=== PATIENT | female | born 1940 | race Caucasian/White ===

== ENCOUNTER 2022-06-07 13:40 | Outpatient (CLI) | payer OTHER, SELFPAY ==
--- NOTE | 2022-06-07 14:00 | MR_ITS ---
[address] [address] Phone:?[phone] Fax:?[phone] Referring Physician Information: Aneudy Moreno [address] [facility] [address] Phone:?[phone] Fax:?[phone] Patient:?Maty Martini D.O.B:?1940 Sex:?Female Phone:?[phone] [facility] MRN:?[id number] Exam Date:?06/07/2022 ? EXAM: MRI of the RIGHT KNEE, without contrast CLINICAL HISTORY: Right knee pain. Evaluate for internal derangement. COMPARISONS: None available. TECHNICAL: MR sequences of the right knee: sagittals: PD, PDFS coronals: PD, T2FS axials: PD, PDFS CONTRAST: None SEDATION: None FINDINGS: Bones: Approximately 1.0 x 1.0 cm subchondral trabecular microfracture of the peripheral weightbearing portion of the medial femoral condyle with adjacent bone marrow edema. Patellofemoral joint: Cartilage: Diffuse full-thickness chondromalacia over the median patellar ridge and medial patellar facet with associated degenerative subchondral cystic changes and extensive near full-thickness chondromalacia over the medial portion of the trochlea. Retinacula: The medial and lateral retinacula are intact. Fat pads: The infrapatellar, quadriceps, and prefemoral fat pads are unremarkable. Knee joint: Effusion: Trace right knee joint effusion. Popliteal cyst: Small popliteal cyst. Intra-articular bodies: None. Medial compartment: Medial meniscus: Full-thickness radial tear through the posterior root of the medial meniscus best seen on coronal series 8 image 21, sagittal series 6 image 18, and axial series 4 image 20. Approximately 3 mm of medial meniscal extrusion best seen on coronal series 7 image 17. Cartilage: Diffuse grade II chondromalacia over most of the weightbearing portion of the medial femoral condyle. Lateral compartment: Lateral meniscus: Degenerative free edge fraying of the body of the lateral meniscus best seen on coronal series 7 image 18. No unstable lateral meniscal tear is seen. Cartilage: Intact. Ligaments: Anterior cruciate ligament: Intact. Posterior cruciate ligament: Intact. Medial collateral ligament: Intact. Posterior oblique ligament: Intact. Fibular collateral ligament: Intact. Posterolateral corner: The distal biceps femoris tendon, iliotibial band, popliteus tendon, popliteus muscle, popliteofibular ligament, and arcuate ligament are intact. Posteromedial corner: The semimembranosus and pes anserine tendons are intact. Extensor mechanism: Patellar tendon: Intact. Quadriceps tendon: Intact, without tendinopathy. IMPRESSION: 1. Full-thickness radial tear through the posterior root of the medial meniscus. Approximately 3 mm of medial meniscal extrusion. 2. Approximately 1.0 x 1.0 cm subchondral trabecular microfracture/insufficiency fracture of the peripheral weightbearing portion of the medial femoral condyle with adjacent bone marrow edema. 3. Diffuse full-thickness chondromalacia over the median patellar ridge and medial patellar facet with associated degenerative subchondral cystic changes and extensive near full-thickness chondromalacia over the medial portion of the trochlea. 4. Diffuse grade II chondromalacia over most of the weightbearing portion of the medial femoral condyle. 5. Degenerative free edge fraying of the body of the lateral meniscus. No unstable lateral meniscal tear. 6. Trace right knee joint effusion. Small popliteal cyst. 7. No ligamentous injury of the right knee. RCB Electronically signed on 06/07/2022 3:31:00 PM by Norm Contreras M.D.
== END 2022-06-07 13:41 | disposition home or self-care (01) ==
LOC: MRI 13:41
PROVIDERS: PCP Physician Assistant; Visit Provider Physician Assistant
DX: M25.561 Pain in right knee (principal); M23.221 Derangement of posterior horn of medial meniscus due to old tear or injury, right knee; M94.261 Chondromalacia, right knee; M25.461 Effusion, right knee
CPT/HCPCS: 73721

== ENCOUNTER 2022-09-11 08:49 | Outpatient (RCR) | payer OTHER, SELFPAY | END 2022-09-11 12:43 | disposition home or self-care (01) | PROVIDERS: PCP Physician Assistant; Visit Provider Orthopaedic Surgery | DX: M17.11 Unilateral primary osteoarthritis, right knee (principal); Z51.89 Encounter for other specified aftercare | CPT/HCPCS: 97110; 97161; 97535 ==

== ENCOUNTER 2022-09-24 07:11 | Day surgery (SDC) | payer OTHER, SELFPAY ==
--- NOTE | 2022-09-11 12:06 | PT.OPEX ---
PT [place] Outpatient Eval PT [facility] Outpatient Eval Start: 09/11/22 07:23 Freq: Status: Active Protocol: Document 09/11/22 09:42 KLV (Rec: 09/11/22 09:49 KLV [id number]) E-signed By Lorene Presley, PT Physical Therapy Outpatient Evaluation Insurance Information Recert Due Date 12/06/22 Insurance Name Health [employer],Medicare B, Other; See Comments Insurance Information/Comments [facility] Medical Diagnosis Osteoarthritis of right knee Pre-operative right total knee replacement Right knee pain Treating Diagnosis Right knee pain, limited knee ROM, impaired gait, gross muscle weakness Referring MD Llamas Subjective Subjective Maty reports to PT for pre- operative exam with expected R TKA DOS 09/24/[address] Llamas at [facility]. She plans to follow up with PT at [facility]. She has had 2 known falls where she has tripped on stairs and landed on her right knee causing gradual wear and tear of that knee. She has not had to use AD at this time but currently limited with ambulation, stair negotiation, squatting, bending and kneeling. She lives with her in split-level home with 1 step to enter and 8 steps to get up and down once inside home. Railings are on both sides with all stairs. and granddaughter (CLEARANCE REP ) plan to assist her at home and do all chores/laundry. She is looking into possibly getting sock aide, leg street light repairer, bath bench, toilet riser prior to surgery. PMH: arthritis Pain Comments 5/10 worst Date of Last Physician Visit 09/10/22 Date of Surgery (If applicable) 09/24/22 Current Work Status Retired Precautions Therapy Limitations/Systems Review Not Limited Objective Other/Pertinent Objective Knee ROM: -L 0-109 -R 0-107 with end range pain Gross TTP medial and lateral joint line Patellar compression + Gait: no AD, limited stance time R LE, reverse trendelenburg R LE UE ROM: WFL B however painful with OH reaching L UE, 4/5 all motions SLR: able to perform x10 without extension lag Assessment Assessment/Impression Pt presents with signs and symptoms consistent with primary R knee OA. DOS: scheduled for 09/24/22. Anticipated deficits/ impairments in pain, ROM, and strength. Pt would benefit from skilled PT interventions to facilitate preparation for upcoming surgery and optimization of return to PLOF following surgery. She demonstrates independence with HEP and use of FWW as well as appropriate gait pattern on stairs. She is appropriate to proceed with surgery at this time and has a safe d/c plan. All questions answered today. Primary Functional Limitations Walking, stair negotiation, squatting, bending, kneeling Plan of Care Rehabilitation Potential Good Physical Therapy Goals By end of session today, patient will... Demonstrate appropriate gait pattern with FWW to utilize post surgery for optimal safety when ambulating Demonstrate ability to negotiate stairs using appropriate stair pattern post surgery for optimal safety when at home and in community Verbalize understanding of most appropriate home set up including needed equipment for optimal safety and recovery post surgery Be independent in HEP program to show ability to perform appropriate exercises post surgery Treatment Plan/Direct Interventions Gait Training,Ice/Cold/ Vasopneumatic,Joint Mobilization,Manual Therapy, Neuromuscular Re-ed,Self-Care/ Home Management,Therapeutic Activities,Therapeutic Exercises Frequency/Duration Evaluation only: patient to attend post-operative outpatient therapy at [facility] in [place] Patient Will Be Discharged From Therapy Completion of LTG(s), Independent w/HEP, Independently Progressing Evaluation Billing Untimed Code Treatment Minutes 15 Complexity Low Certification Information Initial Certification Date 09/11/22 Ending Certification Date 12/06/22 Provider Signature Shows Agreement With POC & Medical Necessity Physician Signature & Date Requested Please Sign/Date Here Physician Comment/Change : Physician NPI Number #
[2022-09-24] VITALS (22 sets, daily range): BP systolic 113–177; BP diastolic 60–93; PULSE 43–97; RESP 14–20; TEMP 36.3–36.7; O2SAT 86–100; BMI 42.7
[2022-09-24] MEDS: OXYCODONE (CR) 10 MG TAB.ER.12H PO (07:17)
[2022-09-24] MEDS: CELECOXIB 200 MG CAPSULE PO ×2 (07:17→21:40)
[2022-09-24] MEDS: ACETAMINOPHEN 500 MG TABLET 1000 MG PO ×3 (08:21→21:40)
--- NOTE | 2022-09-24 08:47 | SUR.PREOP ---
TIME?OUT:?0850 PT/RN/MDA?VERIFICATION?OF?SURGICAL?SITE right leg,?PROCEDURE nerve block,?AND?CONSENT OBTAINED?PRIOR?TO?INVASIVE?PROCEDURE.
[2022-09-24] MEDS: fentaNYL 100 MCG/2 ML inj IVP (08:55)
[2022-09-24] MEDS: MIDAZOLAM HCL 1 MG/ML inj IVP (08:55)
--- NOTE | 2022-09-24 09:10 | P.NB_ITS ---
Nerve Block Nerve Block Time Seen by Provider: 09:10 Date Seen: 09/24/22 Type of block requested by surgeon for post-operative analgesia: adductor canal Side: right Time out performed: Yes Verification of patient name: Yes Verification of date of : Yes Site marking: site marked Name of person performing procedure: Raphael Allison Continuous monitoring Was continuous monitoring of O2 sat, B/P, diagnostic cardiac sonographer, recorded every 15 minutes?: Yes Procedure Checklist: sterile prep, needles and gloves Ultrasound guided. Images saved: Yes Medications given in 5ml increments after negative aspiration: Ropivicaine %: 0.5 mL: 27 Decadron (mg): 10 Precedex (mcg): 20 Patient tolerated procedure well: Yes Block Charges Block Charge (with Pro Fee): Femoral Nerve Use of Ultrasound Machine for Block: Yes- US Guidance/pain block
--- NOTE | 2022-09-24 09:12 | W.PM.NB ---
Nerve Block Nerve Block Time Seen by Provider: 09:12 Date Seen: 09/24/22 Type of block requested by surgeon for post-operative analgesia: geniculars Side: right Time out performed: Yes Verification of patient name: Yes Verification of date of : Yes Site marking: site marked Name of person performing procedure: Raphael Allison Continuous monitoring Was continuous monitoring of O2 sat, B/P, youth nutritional monitor, recorded every 15 minutes?: Yes Procedure Checklist: sterile prep, needles and gloves Ultrasound guided. Images saved: Yes Medications given in 5ml increments after negative aspiration: Ropivicaine %: 0.5 mL: 7 Patient tolerated procedure well: Yes Block Charges Block Charge (with Pro Fee): Genicular Nerve Block
[2022-09-24] MEDS: SODIUM CHLORIDE 0.9 % (FLUSH) 10 ML SYRINGE IVF (09:15)
[2022-09-24] MEDS: LACTATED RINGERS 1000 ML 1,000 ML 100 ML IV ×2 (09:15→11:30)
[2022-09-24] MEDS: CEFAZOLIN 2 GM INJ IVP (10:22)
[2022-09-24] MEDS: TRANEXAMIC ACID 100 MG/ML INJ 1000 MG IV (10:25)
--- NOTE | 2022-09-24 11:35 | CRLHL7_ITS ---
For Patients: As a result of the Cures Act, medical imaging exams and procedure reports are released immediately into your electronic medical record. You may view this report before your referring provider. If you have questions, please contact your health care provider. Indication: POST OP RIGHT TKA Technique: Two views right knee Findings/Impression: Hardware from a right total knee arthroplasty is in satisfactory position. Bone alignment is normal. No sign of acute fracture. Postop changes are within normal limits. Dictated by Eusebio Mcguire MD @ 09/25/2022 1:04:30 PM (Electronically Signed)
--- NOTE | 2022-09-24 11:38 | PM.ORPRC ---
Procedure Note Date of procedure: 09/24/22 Procedure: PREOPERATIVE DIAGNOSIS: Left knee osteoarthritis POSTOPERATIVE DIAGNOSIS: Left knee osteoarthritis NAME OF OPERATION: Left total knee arthroplasty SURGEON: Lorenzo Llamas MD SUPERVISOR HEAT TREATING: KASSIDY Bravo ANESTHESIA: Spinal ESTIMATED BLOOD LOSS: 0 mL COMPLICATIONS: None SPECIMENS: None DRAINS: None PREOPERATIVE ANTIBIOTICS: Ancef 2 grams IMPLANTS: 1. J&J Attune # 5 posterior stabilized femur 2. # 5 fixed-bearing tibia 3. # 5 posterior stabilized, 5 mm fixed-bearing polyethylene 4. 35 patella INDICATIONS: The patient is a 81-year-old with a longstanding history of severe, unrelenting left knee pain secondary to end-stage (grade IV) left knee osteoarthritis. Despite appropriate nonoperative management, including activity modification, anti-inflammatories, [id number] pain medication, bracing, physical therapy, and injections they continue to have pain and disability. Operative intervention was offered. The risks, benefits and expected outcomes were discussed in detail. These included but were not limited to: Infection, bleeding, injury to blood vessel or nerve, venous thromboembolism. All questions were answered to their satisfaction. Use of an dental assistant instructor was necessary throughout the case for patient positioning and safety, soft tissue retraction, and closure. PROCEDURE: Spinal anesthesia was administered. The patient was placed supine on the operating table. The dental assistant instructor made sure the patient was positioned appropriately. The lower extremity was prepped and draped in the usual sterile fashion. The limb was exsanguinated with the Rafa bandage. The pneumatic tourniquet was inflated to 300 mmHg. A standard anterior incision was made with the knee in flexion. Subcutaneous dissection was sharply taken through fascial layer #1. Full-thickness medial and lateral flaps were elevated. The dental assistant instructor retracted the soft tissues and protected them throughout the case. A standard medial parapatellar approach was made. The patella was everted. The infrapatellar fat pad was preserved. The menisci and cruciate ligaments were sharply d?brided. Marginal osteophytes were d?brided with the rongeur. The drill was used to penetrate the femoral canal. The canal was aspirated and irrigated with pulse lavage. The intramedullary femoral guide was placed for a 5-degree valgus cut, removing 10 mm off the distal femur. The saw was used to make the cut. Whitesides line and the trans epicondylar axis were marked. The femoral sizing guide was pinned onto the distal femur. Three degrees of external rotation nicely parallels the transepicondylar axis. Pins were placed for posterior referencing. The four-in-one cutting guide was pinned onto the distal femur. The anterior, posterior, and chamfer cuts were made. The dental assistant instructor protected the collateral ligaments. The box cutting guide was pinned. The box cuts were made. The boxed trial was placed and was an excellent fit. Drill holes for the lugs were made. Attention was then turned to the proximal tibia. The extramedullary tibial guide was placed for a neutral varus/valgus cut with 5 degrees of posterior slope, removing 2 mm based off the medial tibial surface. The dental assistant instructor protected the collateral ligaments and the neurovascular bundle. The saw was used to make the cut. Trial components were placed. The knee was nicely balanced in both flexion and extension. The trial components were removed. The tray was placed in appropriate rotation, parallel to our tibial cutting pins. It was pinned by the dental assistant instructor and the drill and the punch were used. The tray was removed. The punch was used again. We placed a bone plug in the femoral canal. Attention was then turned to the patella. [facility] patellar thickness was 20 mm. The lobster claw resection guide was used with the 7.5 mm dariana. The saw was used to make the cut. Drill holes were made by the dental assistant instructor. The trial was placed and was an excellent fit. Cancellous surfaces were irrigated with pulse lavage and thoroughly dried by the dental assistant instructor. We cemented the tibial component, then the femoral component. We impacted the 5 mm polyethylene onto the tibial tray. The knee was brought into full extension. We then cemented the patellar component. Excessive cement was removed. The cement was allowed to harden. The knee was taken through a range of motion and was found to be nicely balanced in both flexion and extension. The patella tracks centrally. The dental assistant instructor did a three minute dilute Betadine solution soak. The dental assistant instructor irrigated the wound with 3 liters of normal saline via pulse lavage. The dental assistant instructor reapproximated the extensor mechanism with #1 Vicryl in an interrupted [id number] fashion. The dental assistant instructor then ran the extensor mechanism with a #1 PDO Stratafix. The dental assistant instructor closed the subcutaneous tissues with a 3-0 Stratafix and the skin with a running 3-0 Stratafix in a subcuticular fashion. Glue was used to seal the skin. The dental assistant instructor placed a dry dressing, TOBY stocking, and Polar Care. Sponge and needle counts were correct x2. The patient tolerated the procedure well. There were no apparent complications. They were carefully transferred to the hospital bed and taken to the postanesthesia care unit in satisfactory condition. PLAN: The patient will be mobilized with physical therapy. Aspirin will be used for DVT prophylaxis. They will be discharged to home once medically appropriate.
--- NOTE | 2022-09-24 12:08 | W.ANESCHARGE ---
Anesthesia Charges Start Date/Time Anesthesia Start Date: 09/24/22 Anesthesia Start Time: 10:15 Stop Date/Time Anesthesia Stop Date: 09/24/22 Anesthesia Stop Time: 12:08 Summary Emergency: No Extremes of Age: Over 70-CPT 17[address]
--- NOTE | 2022-09-24 17:02 | PM.IMCN1 ---
Date of Consult Patient: Cheryl Patient Consult date: 09/24/22 Requesting Physician: Orthopedics Primary Care Provider: Genie Cruz PA-C Consult Narrative Reason for consult: DM2 Narrative: Maty Martini is a 81 year old female who underwent an elective right total knee arthroplasty today by Dr. Llamas for osteoarthritis. Postoperatively she is doing well. She had the surgery this morning and just now in the late afternoon she is starting to feel some pain in her knee, but has not yet taken any oral pain medication for it. Her , [place], is with her today. Maty told me about problems with hair loss when she gets stressed, diarrhea from certain foods such as citrus and corn as well as stress or anxiety. She has a history of rectocele which, although it was repaired, she still is sometimes incontinent of stool. She has also occasionally incontinent of urine, it sounds like stress incontinence. She also complains of insomnia for which she recently started an rcbj-qfj-qljedeh diphenhydramine. Review of Systems Status of ROS: Reports: 10 or more systems reviewed and unremarkable except as noted in History and below PFSH PFSH Medical History (Updated 09/24/22 @ 17:29 by Kortney Urbina MD) Bilateral lower extremity edema Colon polyp GERD (gastroesophageal reflux disease) Incontinence of feces Intussusception of rectum Obesity, Class III, BMI 40-49.9 (morbid obesity) Sinus bradycardia Sleep apnea Type 2 diabetes mellitus without complications Urinary incontinence Varicose veins of both lower extremities Surgical History (Updated 09/24/22 @ 17:18 by Kortney Urbina MD) H/O breast biopsy H/O cataract removal with insertion of prosthetic lens H/O hernia repair (10/2020) H/O: hysterectomy (~1991) History of appendectomy (1961) History of rectal surgery (12/2017) History of tonsillectomy (1967) Hx of colonoscopy Hx of esophagogastroduodenoscopy S/P total knee arthroplasty Family History (Updated 09/24/22 @ 17:19 by Kortney Urbina MD) Mother Colon cancer Pacemaker Diabetes High blood pressure Father Diabetes Stroke Myocardial infarction Sister High blood pressure Sleep apnea Aunt Breast cancer Aunt Breast cancer Social History (Updated 09/24/22 @ 17:21 by Kortney Urbina MD) Narrative: . Lives with . Lifelong nonsmoker. Denies alcohol use and recreational drug use. Full code. Smoking Status: Never smoker Do you use any of these nicotine containing products: None How often do you have a drink containing alcohol: monthly or less Alcohol type: wine How many standard drinks containing alcohol do you have on a typical day: 1 or 2 How often do you have six or more drinks on one occasion: Never AUDIT-C Alcohol total score: 1 Non-prescribed substance use: denies use Caffeine: No service: No Meds Home Medications and Allergies Home Medications Medication Instructions Recorded Confirmed Type acetaminophen 500 mg capsule 500 mg PO Q6H PRN 05/29/22 09/24/22 History antiarthritic combination no.2 900 900 mg PO DAILY 05/29/22 09/24/22 History mg tablet (glucosamine-chondroitin) cholecalciferol (vitamin D3) 10 10 mcg PO QDAY 05/29/22 09/24/22 History mcg (400 unit) capsule lactobacillus combination no.9 4 4,000 mmu cells PO QDAY 05/29/22 09/24/22 History billion cell capsule (Adult 50 Plus Probiotic) omega-3 fatty acids-fish oil 360 1 cap PO QDAY 05/29/22 09/24/22 History mg-1,200 mg capsule (Fish Oil) polyethylene glycol 3350 17 4 g PO ONCE PRN 05/29/22 09/24/22 History gram/dose oral powder metformin 500 mg tablet,extended 1,000 mg PO DAILY 09/23/22 09/24/22 History release 24 hr multivitamin 1 tab PO DAILY 09/23/22 09/24/22 History omeprazole 40 mg capsule,delayed 40 mg PO DAILY 09/23/22 09/24/22 History release diphenhydramine HCl 25 mg capsule 50 mg PO QHS 09/24/22 09/24/22 History (Benadryl) Allergies Allergy/AdvReac Type Severity Reaction Status Date / Time No Known Drug Allergies Allergy Verified 07/10/22 14:39 Exam Narrative: Exam Narrative: General: No acute distress. Awake alert oriented x3. HEENT: Normocephalic atraumatic, pupils equally round and reactive to light and accommodation. Oropharynx clear. Mucous membranes are moist. No cervical lymphadenopathy, thyromegaly or carotid bruits. No JVD. Cardiovascular: Regular rate and rhythm. No murmurs, gallops, or rubs. Chest: No increased work of breathing. Clear to auscultation bilaterally. No crackles or wheezes. Abdomen: Obese. Bowel sounds present. Soft, nondistended, nontender. No hepatosplenomegaly or masses. Extremities: Right knee bandage is clean, dry, and intact. No cyanosis or clubbing. Skin: No jaundice, no pallor, no rashes. Const: Vital Signs, click to edit/add: Vital Signs - 24 hr 09/24/22 07:38 09/24/22 08:45 09/24/22 09:05 Temperature 98.1 F Pulse Rate 55 L 50 L 50 L Respiratory Rate 20 18 14 Blood Pressure 143/93 H 177/84 H 147/79 H Pulse Oximetry 94 99 100 Oxygen Delivery Me thod Room Air Nasal Cannula Nasal Cannula Oxygen Flow Rate 2 2 09/24/22 12:03 09/24/22 12:10 09/24/22 12:15 Temperature 97.4 F L Pulse Rate 64 53 L 53 L Respiratory Rate 16 14 14 Blood Pressure 116/60 113/73 118/68 Pulse Oximetry 94 91 93 Oxygen Delivery Me thod Room Air Oxygen Flow Rate 09/24/22 12:20 09/24/22 12:25 09/24/22 12:30 Temperature 97.4 F L Pulse Rate 49 L 48 L 52 L Respiratory Rate 16 14 14 Blood Pressure 120/68 120/64 128/64 Pulse Oximetry 91 97 94 Oxygen Delivery Me thod Oxygen Flow Rate Assessment and Plan Assessment and plan (1) S/P total knee arthroplasty: Problem comment: 09/24/2022 right Status: Acute (2) Osteoarthritis of right knee: Problem comment: Mild medial compartment joint space narrowing, full-thickness chondromalacia over the median patellar ridge and medial patellar facet with associated subchondral cystic changes and near full-thickness chondromalacia over the medial portion of the trochlea. Diffuse grade 2 chondromalacia over most of the weight-bearing portion of the medial femoral condyle. Status: Chronic (3) Type 2 diabetes mellitus without complications: Status: Chronic (4) Sinus bradycardia: Problem comment: Present on preop EKG 09/10/2022 Status: Acute (5) Obesity, Class III, BMI 40-49.9 (morbid obesity): Status: Chronic (6) GERD (gastroesophageal reflux disease): Status: Chronic Plan This is a 81-year-old female who underwent elective right total knee arthroplasty. Surgery and postoperative course have so far been unremarkable. She has a history of well-controlled type 2 diabetes mellitus for which she is on metformin and follows a diabetic diet. We discussed how type 2 diabetes can increase her risk for wound healing complications and that she should continue following the diabetic diet, taking metformin as an outpatient, and managing her sugars. She has sinus bradycardia which was also present on her preoperative EKG. It is stable and she is asymptomatic. She appears to have multiple stress induced symptoms such as probable functional diarrhea, hair loss during stressful periods and difficulty with weight control. She had also endorsed quite a bit of stress in her life at times and I have recommended outpatient therapy or counseling. For VTE prophylaxis she will be on twice a day aspirin. She is planning to be discharged home tomorrow and I think she is on track to do so. I have no further recommendations at this time. Given the consult.
[2022-09-24] MEDS: OXYCODONE 5 MG TABLET PO ×2 (17:30→21:52)
[2022-09-24] MEDS: CEFAZOLIN 2 GM in 0.9 % SODIUM CHLORIDE Mini-bag 100 ML IVPB (17:30)
[2022-09-24] MEDS: LACTATED RINGERS 1000 ML 1,000 ML 75 ML IV (17:31)
--- NOTE | 2022-09-24 19:40 | PC.NURSE ---
Up to the BR/chair with assist of 1, walker and gait belt. Oxycodone given PRN for pain. Dressing to right knee is CDI. Cryo-cuff and plexipulses are in place. Denies nausea, able to tolerate a regular diet. History of sleep apnea.
[2022-09-24] MEDS: ASPIRIN 81 MG TABLET EC PO (21:40)
[2022-09-25] MEDS: CEFAZOLIN 2 GM in 0.9 % SODIUM CHLORIDE Mini-bag 100 ML IVPB ×2 (00:18→08:27)
[2022-09-25 03:00] VITALS: BP 155/79; PULSE 60; RESP 18; TEMP 36.4; O2SAT 94
[2022-09-25] MEDS: ACETAMINOPHEN 500 MG TABLET 1000 MG PO ×2 (04:28→10:13)
[2022-09-25] MEDS: OXYCODONE 5 MG TABLET PO ×2 (04:28→10:06)
[2022-09-25 06:43] LABS: Basophils Percent Auto 0.1 % (0.0-3.0); Hematocrit 34.1 % (33.0-51.0); Hemoglobin* 11.3 gm/dL (12.0-16.0); Immature Granulocytes Pct Auto 0.1 %; Mean Corpuscular HGB Conc 33 gm/dL (32-36); Mean Corpuscular Hemoglobin 32 pg (26-34); Mean Corpuscular Volume 96 fL (80-100); Neutrophils Percent Auto 80.8 % (42.0-72.0); Platelet Count* 213 K/uL (140-440); Red Blood Count 3.54 m/uL (4.00-5.20); White Blood Count* 14.73 K/uL (4.50-11.00)
--- NOTE | 2022-09-25 06:46 | PC.NURSE ---
End of shift status [id number] Pt alert and oriented. Pleasant and cooperative. Receiving scheduled tylenol, celecoxib, and PRN Oxy for pain. CMS intact to right leg. Dressing CDI. Cryo cuff to right knee on. IV ancef given. LR at 75mL/hr. VSS on room air. Wearing CPAP overnight. Up with stand by and walker. Pt observed resting between cares. Plan to d/c home today.
[2022-09-25 06:58] LABS: Potassium* 4.2 mmol/L (3.6-5.1); Slide Review Reflex No; Sodium* 134 mmol/L (135-149)
[2022-09-25 07:00] VITALS: BP 174/80; PULSE 50; RESP 18; TEMP 36.2; O2SAT 94
[2022-09-25 07:01] LABS: Creatinine* 0.6 mg/dL (0.5-1.5); Est. Creatinine Clearance* 69.13; Estimated Glomerular Filt Rate 91 ml/min
[2022-09-25 07:02] LABS: Blood Urea Nitrogen* 16 mg/dL (7-30); Prothrombin Time 14.8 Seconds
[2022-09-25] MEDS: LACTATED RINGERS 1000 ML 1,000 ML 75 ML IV (07:27)
[2022-09-25] MEDS: OMEPRAZOLE 20 MG CAPSULE DR 40 MG PO (08:25)
[2022-09-25] MEDS: MULTIVITAMIN/MINERALS 1 TABLET 1 TAB PO (08:26)
[2022-09-25] MEDS: ASPIRIN 81 MG TABLET EC PO (08:26)
[2022-09-25] MEDS: CELECOXIB 200 MG CAPSULE PO (08:26)
[2022-09-25] MEDS: LACTOBACILLUS ACIDOPHILUS 1 TABLET 1 TAB PO (08:31)
--- NOTE | 2022-09-25 15:57 | PM.ORPN ---
Subjective Subjective Time Seen by Provider: 10:00 Date Seen: 09/25/22 Principal diagnosis: Status post right total knee arthroplasty Interval history: Maty is comfortable this morning. She is attending physical therapy as we speak. This is going well. She will discharge to home with her today. Ortho Exam Narrative Exam Narrative: Alert and oriented x3. Patient is in no acute distress. Converses without labored breathing. Hearing is grossly intact. Ambulates with a walker. Examination of the right lower extremity shows mild soft tissue edema about the knee. Dressing is intact. Lateral calves are soft and nontender. CMS is intact right lower extremity. Const Vital Signs, click to edit/add: Vital Signs - 24 hr 09/24/22 16:00 09/24/22 17:00 09/24/22 18:00 Temperature Pulse Rate [Pulse Oximeter] 53 L 52 L 52 L Respiratory Rate 16 16 16 Blood Pressure [Left Arm] 139/67 169/76 H 169/76 H Pulse Oximetry 96 93 92 Oxygen Delivery Method Nasal Cannula Room Air Room Air Oxygen Flow Rate 2 09/24/22 22:50 09/24/22 23:00 09/25/22 03:00 Temperature 97.7 F 97.6 F Pulse Rate [Pulse Oximeter] 57 L 60 Respiratory Rate 18 18 Blood Pressure [Left Arm] 151/78 H 155/79 H Pulse Oximetry 93 94 94 Oxygen Delivery Method Room Air CPAP Oxygen Flow Rate 09/25/22 07:00 09/25/22 07:00 Temperature 97.2 F L Pulse Rate [Pulse Oximeter] 50 L Respiratory Rate 18 Blood Pressure [Left Arm] 174/80 H Pulse Oximetry 94 94 Oxygen Delivery Method Room Air CPAP Oxygen Flow Rate Assessment and Plan Assessment and plan (1) S/P total knee arthroplasty: Problem details: 09/24/2022 right Status: Acute Assessment and Plan: Plan for discharge is today to home if they meet discharge criteria. DVT prophylaxis includes aspirin 81 mg twice daily x1 month, Theo stockings x1 month may remove for 1 hr per day, frequent ambulation Remove dressing in 1 week. Observe wound and phone Orthopedics with any questions or concerns Return to clinic in 1 week for a wound check Return to clinic in [address] Llamas Minimize narcotic use. Wean off and discontinue soon as possible. Activities as tolerated. No strenuous activity. Outpatient physical therapy as scheduled. Ice and elevate the operative extremity. No restriction on ice. (2) Type 2 diabetes mellitus without complications: Status: Chronic (3) Sinus bradycardia: Problem details: Present on preop EKG 09/10/2022 Status: Acute (4) Obesity, Class III, BMI 40-49.9 (morbid obesity): Status: Chronic (5) GERD (gastroesophageal reflux disease): Status: Chronic
== END 2022-09-25 11:45 | disposition home or self-care (01) ==
LOC: OR 07:12 → MEDSURG 07:15
PROVIDERS: PCP Physician Assistant; Visit Provider Orthopaedic Surgery
PROC: (CPT 27447; principal; 2022-09-24 09:15)
DX: M17.11 Unilateral primary osteoarthritis, right knee (principal); M25.561 Pain in right knee; E11.9 Type 2 diabetes mellitus without complications; R00.1 Bradycardia, unspecified; E66.01 Morbid (severe) obesity due to excess calories; K21.9 Gastro-esophageal reflux disease without esophagitis; Z68.41 Body mass index [BMI] 40.0-44.9, adult; G47.30 Sleep apnea, unspecified; N39.46 Mixed incontinence
CPT/HCPCS: 27447; 01402; 36415; 64447; 64454; 73560; 76942; 82565; 84132; 84295; 84520; 85025; 85610; 97110; 97116; 97161; 97165; 97535; 99100; A9153; A9270; C1776; J0690; J1100; J2250; J2405; J2704; J2795; J3010; J7120

== ENCOUNTER 2025-06-04 12:04 | Inpatient (IN) | payer OTHER, SELFPAY ==
[2025-06-04] VITALS (22 sets, daily range): BP systolic 125–157; BP diastolic 62–90; PULSE 52–77; RESP 16–22; TEMP 35.9–36.6; O2SAT 90–96; BMI 40.8
--- OUTSIDE RECORDS SUMMARY | 2025-06-04 12:06 | XMS_ITS | Clinical Summary ---
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 0 01/29/20 11 Active cholecalciferol (VITAMIN D3) 1,000 unit tablet Take 1 tablet by mouth once daily. 0 01/29/20 11 Active glucosamine-chondr oitin, 500-400 mg, (COSAMIN DS 500/400) 500-400 mg Cap Take 1 capsule by mouth 3 times daily. 0 07/11/20 11 Active calcium 600 mg capsule Take 1,200 mg by mouth once daily. 0 07/11/20 11 Active lactobacillus rhamnosus, GG, (CULTURELLE) 10 billion cell capsule Take 1 capsule by mouth once daily. 0 07/11/20 11 Active acetaminophen (TYLENOL) 325 mg tablet Take 650 mg by mouth every 6 hours if needed. Max acetaminophen dose: 4000mg in 24 hrs. Active fish oil-omega-3 fatty acids (FISH OIL) 1,200-360 mg cap Take 2 capsules by mouth once daily. One capsule is 1200 mg-360 mg Active polyethylene glycol (MIRALAX; GLYCOLAX) 17 g powder for solution Take 1 Packet by mouth once daily if needed for Constipation. Active Diaper,Brief, Adult,DisposableIn dications:Function al urinary incontinence,Incon tinence of feces, unspecified fecal incontinence type For home use. 1 box 03/12/20 21 Active CPAPIndications:Se comer obstructive sleep apnea CPAP (E0601) machine for home use at pressure: 9-12 , Choice of mask (A7030 or A7034) w/full face cushion (A7031) x1/mo, nasal cushion (A7032) x2/mo, or nasal pillows (A7033) x 2/mo; Length of Need: 99 months; Frequency of use: Daily 1 Each 06/28/20 24 Active tirzepatide (Mounjaro) 7.5 mg/0.5 mL penIndications:Con trolled type 2 diabetes mellitus without complication, without long-term current use of insulin (HC),Morbid obesity with BMI of 40.0-44.9, adult (HC) Inject 7.5 mg subcutaneous once weekly. 6 mL 2 02/09/20 25 Active omeprazole 40 mg Delayed-Release capsuleIndications :Chronic GERD Take 1 Capsule (40 mg) by mouth once daily before a meal. 90 Capsule 3 02/09/20 25 Active atorvastatin 10 mg tabletIndications: Mixed hyperlipidemia Take 1 Tablet (10 mg) by mouth at bedtime. 90 Tablet 3 02/10/20 25 Active Active Problems Problem Noted Date Diagnosed Date Class 3 severe obesity with body mass index (BMI) of 45.0 to 49.9 in adult 10/18/2023 Depression, recurrent 10/18/2023 Varicose veins of bilateral lower extremities with other complications 09/10/2022 Bilateral lower extremity edema 07/31/2022 Morbid (severe) obesity due to excess calories 0 03/06/2022 Chronic GERD 03/06/2022 Chronic pain of right knee 03/06/2022 Mixed incontinence urge and stress 03/06/2022 OAB (overactive bladder) 03/06/2022 Incarcerated incisional hernia 12/17/2018 Controlled type 2 diabetes m ellitus without complication, without long-term current use of insulin 09/25/2018 Umbilical hernia without obstruction and without gangrene 06/22/2018 Intussusception of rectum 01/16/2018 Incontinence of feces 08/13/2017 Rectocele 08/13/2017 Mixed stress and urge urinary incontinence 08/13 ALLISON on CPAP 12/14/2015 Polyp of colon Resolved Problems Problem Noted Date Diagnosed Date Resolved Date Ulcerative colitis with rectal bleeding 11/02/2019 02/09/2025 Obesity (BMI 35.0-39.9 without comorbidity) 12/17/2018 10/18/2023 Controlled type 2 diabetes m ellitus with complication, without long-term current use of insulin 09/25/2018 09/25/2018 Diarrhea 09/12/2011 11/10/2020 Overview (09/12/2011): EGD 08/2011 normal Back pain 03/06/2011 11/10/2020 Lumbar pain with radiation down right leg 03/06/2011 11/10/2020 Encounters Date Type Department Care Team Description 05/18/2025 Orders Only [facility] Scanner 1 scan: (1-Ord) [facility], 05/18/2025 from Last 3 Months Immunizations Immunization Administration Dates Next Due AMB Influenza, IIV3 (Age >=3 years)(Flu Clinic Only) 08/11/2008 COVID-19 vaccine ([employer] NTProperati 30mcg/0.3mL) PF, MDV 12/19/2020,11/28/2020 Influenza Virus, Unspecified 07/10/2020,06/29/20 19,07/22/2017 Influenza, High-dose Inactivated 019,07/29/2018,07/22/2017,08/02,07/26/2014 Influenza, IIV3 (Age >=3 years) 08/04/20 13,08/29/2012,09/14/2009,08/12 Influenza, Inactivated AIIV4 (Age 65+ Years) Preserv Free 08/05/2023,07/19/2022,07/13/2021,07/10 Influenza, Inactivated IIV3 (Age 65+ Years) Preserv Free 08/09/2024 Pneumococcal Poly,23-Valent (Pneumovax) 08/29/2012 Pneumococcal conj 13-Valent (Prevnar 13) 10/19/2015 RSV, Bivalent Vaccine Recons tituted (Abrysvo 120MCG/0.5mL) 09/11/2023 Tdap 08/16/2016,07/19/2005 Zoster (Shingrix-RZV, recombinant) 08/29/2020, Zoster (Zostavax-ZVL, live) 08/29/2012 Family History Medical History Relation Name Comments Diabetes Father Heart Disease Father Stroke Father Cancer-breast Maternal Aunt Cancer-colon Mother Hypertension Mother Cancer-breast Paternal Aunt Relation Name Status Comments Daughter 1 Alive gallstones, janelle m issues Daughter 2 Alive benign tumor he ad Father (Age 82) heart dise ase, stroke, diabetes Maternal Aunt Alive Mother colon cancer, d iabetic, hypertension Paternal Aunt Sister 1 Alive Sister 2 Alive Sister 3 Alive Son 1 Alive Son 2 Alive Social History Tobacco Use Types Packs/Day Years Used Date Smoking Tobacco: Never Smokeless Tobacco: Never Tobacco Cessation:Counseling Given: Yes Alcohol Use Standard Drinks/Week Comments Not Currently 0 (1 standard drink = 0.6 oz pur e alcohol) PHQ-2 Answer Date Recorded PHQ-2 TOTAL SCORE 0 02/08/2025 Social Connections Answer Date Recorded Do you often feel lonely or isolated from those around you? 0 02/08/2025 Financial Resource Strain Answer Date R ecorded Difficulty of Paying Living Expenses 3 02/08/2025 Difficulty of Paying Living Expenses Not on file 02/08/2025 Food Insecurity Answer Date Recorded Do you worry your food will run out before you are able to buy more? 1 02/08/2025 Transportation Needs Answer Date Record ed Does lack of transportation keep you from medica l appointments? 1 02/08/2025 Does lack of transportation keep you from work, meetings or getting things that you need? 1 02/08/2025 Housing Stability Answer Date Recorded What is your housing situation today? 1 02/08/2025 Utilities Answer Date Recorded Do you have trouble paying f or utilities (for example, heat, electricity, water, phone)? 1 02/08/2025 Comments No Sex and Gender Information Value Date Recorded Sex Assigned at Not on file Legal Sex Female 6:59 AM CHIEF LIBRARIAN WORK [employer] Gender Identity Not on file Sexual Orientation Not on file Occupation Industry Job Start Date Job End Date Retired Not on file Not on file Not on file Obstetrics History Para Term AB IAB SAB Ectopic Multiple Livin g Live Births 4 4 4 4 4 Date Outcome GA Total Labor Labor/2nd/3rd Weight Sex Type Anes PTL Sona A1 A5 Name Clin 1959 Term 40w 0d 3.63 kg (8 lb) F Vag Living 1960 Term 40w 0d 3.63 kg (8 lb) F Vag Living 1964 Term 40w 0d 3.63 kg (8 lb) M Vag Living 1967 Term 40w 0d 3.63 kg (8 lb) M Vag Living Last Filed Vital Signs Vital Sign Reading Time Taken Comments Blood Pressure 122/79 02/08/2025 10:03 AM CDT Pulse 50 02/08/2025 10:03 AM CDT Temperature 36.7 C (98 F) 04/13/2023 11:08 PM CDT Respiratory Rate 20 04/13/2023 11:08 PM CDT Oxygen Saturation 96% 02/08/2025 10:03 AM CDT Inhaled Oxygen Concentration - - Weight 91.2 kg (201 lb) 02/08/2025 10:03 AM CDT Height 151.3 cm (4' 11.57) 02/08/2025 10:03 AM CDT Body Mass Index 39.83 02/08/2025 10:03 AM CDT Plan of Treatment Health Maintenance Due Date Last Done Comments COVID-19 vaccine series ( season) 2025 08/09/2024, 08/11/2023, 07/22/2022, Additional history exists Influenza Vaccine (#1) 2025 , 08/05/2023, 07/19/2022, Additional history exists BMI (ht and wt on same day) for age 18+ 02/08/2026 02/08/2025, 10/16/2023, 01/02/2023, Additional history exists Depression screening for age 12+ 02/08/2026 02/08/2025, 10/16/2023, 03/04/2022, Additional history exists Medicare Wellness for age 65+ 02/09/2026 02/08/2025, 10/16/2023, 03/04/2022, Additional history exists Tetanus booster 08/16/2026 08/16/2016, 07/19/2005 Pneumococcal series for age 50+ Completed 10/19/2015, 08/29/2012 DEXA/DXA scan for age 65+ Completed 10/23/2015 Zoster (shingles) series for age 50+ Completed 08/29/2020, 04/13/2020, 08/29/2012 RSV vaccine for adults or Completed 09/11/2023 Hepatitis B series for 19+ Aged Out N o longer eligible based on patient's age to complete this topic Medical Devices Implanted Type Area Fuel Tank Sealer And Tester Device Identifier Shelf Expiration Date Model / Serial / Lot Mesh Pelvic [id number] Gynemesh - [id number] Implanted:Qty: 1 on 01/15/2018 by Alysha Crawford MD at [facility] N/A: Pelvis [employer] Womens H / Uro 08/28/2022 [id number] / / [id number] Mesh Inguinal [id number] Marlex - [id number] Implanted:Qty: 1 on 11/10/2020 by Jaiden Phillips MD at [facility] N/A: Abdomen [employer] 11/26/2024 [id number] / / [id number] Procedures Procedure Name Priority Date/Time Associated Diagnosis Comments SCAN-EYE EXAM 05/18/2025 12:00 AM CDT XR DXA BONE DENSITY 2 SITES AXIAL Routine 10/23/2015 11:23 AM CHIEF LIBRARIAN WORK WITH [employer] Medicare annual wellness visit, subsequent from Last 3 Months or Most Recently Relevant to Health Maintenance Results * SCAN-EYE EXAM (05/18/2025 12:00 AM CDT) us Scanner OTHER Final Result * XR DEXA BONE DENSITY 2 SITES [38412.1] (10/23/2015 11:23 AM CHIEF LIBRARIAN WORK [employer]) Anatomical Region Laterality Modality Spine, HIPS, HIPL, HIPR Bone Den sitometry Narrative 10/26/2015 2:47 PM CHIEF LIBRARIAN WORK WITH [employer] Please see scanned document for results of this study. us Nelsy Barahona NP DEXA Final Result from Last 3 Months or Most Recently Relevant to Health Maintenance Insurance MEDICARE PART A HB ONLY MEDICARE ADVANTAGE MR BETTY GALINDO [id number] BETTY GALINDO [id number] MEDICARE PART B HB ONLY Advance Directives Documents on File Type Date Recorded Patient Mine Wedge Sawyer Expl anation Healthcare Directive 08/20/2019 12:00 AM 08/10/2019 Healthcare Directive 08/17/2019 3:07 PM D uplicate 08/20/2019 * Full Code (Latest Code Status on File) Date Activated Date Inactivated Comments 08/06/2022 6:49 AM 08/06/2022 11:52 AM Question Answer Comments Code Status Discussion: Discussed * Full Code Date Activated Date Inactivated Comments 11/10/2020 10:18 AM 11/14/2020 3:41 PM Question Answer Comments Code Status Discussion: Not Discussed * Full Code Date Activated Date Inactivated Comments 01/15/2018 5:54 AM 01/17/2018 2:34 PM Care Teams [employer] W[employer] Marker Relationship Specialty Start Date End Date Genie Cruz PA [address] [place] [address] PCP - General Physician Inside Sales Recruiter 04/13/23 Billy Murcia MD Ophthalmology Surgery 01/28/11
--- OUTSIDE RECORDS SUMMARY | 2025-06-04 12:06 | XMS_ITS | Clinical Summary ---
Author Organization [facility] Address [address] [place] [address] Care Team Providers Care Supervisor Instrument Mechanics Name Role Phone Provider, No Attributed RESOURCE Unavailable Unavailable Allergies No known active allergies Medications No known medications Social History Tobacco Use Types Packs/Day Years Used Date Smoking Tobacco: Never Assessed Comments No Sex and Gender Information Value Date Recorded Sex Assigned at Female 05/11/2021 9:07 AM CDT Legal Sex Female 11:25 AM CDT Gender Identity Female 05/11/2021 9:07 AM CDT Sexual Orientation Not on file Last Filed Vital Signs Vital Sign Reading Time Taken Comments Blood Pressure 189/84 06/03/2018 11:29 AM CDT Pulse 45 06/03/2018 11:29 AM CDT Temperature 36.6 C (97.8 F) 06/03/2018 11:29 AM CDT Respiratory Rate 16 06/03/2018 11:29 AM CDT Oxygen Saturation 94% 06/03/2018 11:29 AM CDT Inhaled Oxygen Concentration - - Weight 104.3 kg (230 lb) 06/03/2018 11:29 AM CDT Height 154.9 cm (5' 1) 06/03/2018 11:29 AM CDT Body Mass Index 43.46 06/03/2018 11:29 AM CDT Plan of Treatment Not on file Advance Directives For more information, please contact: [phone] Documents on File Type Date Recorded Patient Radiological Defense Officer Expl anation Advance Directives and Living Will 08/23/2019 Care Teams Supervisor Instrument Mechanics Relationship Specialty Start Date End Date Provider, No Attributed, RESOURCE [address] PCP - Attributed Provider 06/23/18
--- NOTE | 2025-06-04 12:28 | ED.GENADULT ---
HPI - General Adult General Chief complaint: Abdominal Pain Stated complaint: Abdominal pain Time Seen by Provider: 06/04/25 12:27 History of Present Illness HPI narrative: pt here with abdominal pain on and off for a month, yesterday and today became worse and had difficulty eating, occasional nausea, pt does not think it is constipation , goes 1-2 times a day with hard stool , history of constipation and diarrhea in the past due to colorectal surgeries, history of colitis but usually has blood in stool with that 84-year-old presenting to the emergency department with concern of abdominal pain intermittent over the last 1 maybe 2 months. Often with nausea. Does have a history of GERD treated with omeprazole more recently. Discomfort can be sharp. Cramping. No dysuria no hematuria. No diarrhea in fact has been having hard stools once or twice daily but does not think that she is constipated. Does have a history of colitis; unclear what kind. History of diverticulitis as well. Yesterday with more lower abdominal cramping and otherwise discomfort that has continued. Poor appetite the last couple of days. But gestures that generally is experiencing pain all over with the generally sensitive tummy. When asked about fatty foods triggering this says ?oh yeah?. Ate some lettuce couple days ago thought that might have triggered increased discomfort for which she presents here today. Has pain in particular across the upper abdomen in the mornings for some time. Has had a number of abdominal surgeries with history of appendectomy, rectocele repair, incisional/umbilical/ventral hernia repair, abdominal hysterectomy. Has not had a fever here recently. Does have some food intolerance where prone to diarrhea including citrus, Related Data Home Medications ?Medication ?Instructions ?Recorded ?Confirmed antiarthritic combination no.2 900 900 mg PO DAILY 05/29/22 03/24/23 mg tablet (glucosamine-chondroitin) cholecalciferol (vitamin D3) 10 10 mcg PO QDAY 05/29/22 03/24/23 mcg (400 unit) capsule lactobacillus combination no.9 4 4,000 mmu cells PO QDAY 05/29/22 03/24/23 billion cell capsule (Adult 50 Plus Probiotic) omega-3 fatty acids-fish oil 360 1 cap PO QDAY 05/29/22 03/24/23 mg-1,200 mg capsule (Fish Oil) multivitamin 1 tab PO DAILY 09/23/22 03/24/23 omeprazole 40 mg capsule,delayed 40 mg PO DAILY 09/23/22 03/24/23 release buspirone 5 mg tablet 5 mg PO BID 03/24/23 03/24/23 clotrimazole-betamethasone 1 applic topical BID 03/24/23 03/24/23 %-0.05 % topical cream furosemide 20 mg tablet 20 mg PO DAILY 03/24/23 03/24/23 magnesium citrate 100 mg capsule 200 mg PO QDAY 03/24/23 03/24/23 solifenacin 5 mg tablet 5 mg PO DAILY 03/24/23 03/24/23 Previous Rx's ?Medication ?Instructions ?Recorded Walker- 2 Wheels #1 ea 09/16/22 acetaminophen 500 mg capsule 500 - 1,000 mg (1 - 2 x 500 mg) PO 09/24/22 Q6H PRN pain #100 caps Allergies Allergy/AdvReac Type Severity Reaction Status Date / Time No Known Drug Allergies Allergy Verified 03/24/23 13:35 Review of Systems Status of ROS: Reports: 6 or more systems reviewed and unremarkable except as noted in History and below [facility] Medical History Sinus bradycardia ?R00.1 - Bradycardia, unspecified (ICD-10) Colon polyp ?K63.5 - Polyp of colon (ICD-10) Varicose veins of both lower extremities ?I83.93 - Asymptomatic varicose veins of bilateral lower extremities (ICD-10) Bilateral lower extremity edema ?R60.0 - Localized edema (ICD-10) Intussusception of rectum ?K56.1 - Intussusception (ICD-10) Incontinence of feces ?R15.9 - Full incontinence of feces (ICD-10) Type 2 diabetes mellitus without complications ?E11.9 - Type 2 diabetes mellitus without complications (ICD-10) Urinary incontinence ?R32 - Unspecified urinary incontinence (ICD-10) GERD (gastroesophageal reflux disease) ?K21.9 - Gastro-esophageal reflux disease without esophagitis (ICD-10) Sleep apnea ?G47.30 - Sleep apnea, unspecified (ICD-10) Obesity, Class III, BMI 40-49.9 (morbid obesity) ?E66.01 - Morbid (severe) obesity due to excess calories (ICD-10) Surgical History H/O breast biopsy ?Z98.890 - Other specified postprocedural states (ICD-10) Hx of esophagogastroduodenoscopy ?Z98.890 - Other specified postprocedural states (ICD-10) Hx of colonoscopy ?Z98.890 - Other specified postprocedural states (ICD-10) H/O cataract removal with insertion of prosthetic lens ?Z98.49 - Cataract extraction status, unspecified eye (ICD-10) ?Z96.1 - Presence of intraocular lens (ICD-10) S/P total knee arthroplasty ?Z96.659 - Presence of unspecified artificial knee joint (ICD-10) History of appendectomy (1961) ?Z90.49 - Acquired absence of other specified parts of digestive tract (ICD-10) History of rectal surgery (12/2017) ?Z98.890 - Other specified postprocedural states (ICD-10) H/O hernia repair (10/2020) ?Z98.890 - Other specified postprocedural states (ICD-10) ?Z87.19 - Personal history of other diseases of the digestive system (ICD-10) H/O: hysterectomy (~1991) ?Z90.710 - Acquired absence of both cervix and uterus (ICD-10) History of tonsillectomy (1967) ?Z90.89 - Acquired absence of other organs (ICD-10) Family History Mother Colon cancer Pacemaker Diabetes High blood pressure Father Diabetes Stroke Myocardial infarction Sister High blood pressure Sleep apnea Aunt Breast cancer Aunt Breast cancer Social History Narrative: . Lives with . Lifelong nonsmoker. Denies alcohol use and recreational drug use. Full code. Smoking Status: Never smoker Do you use any of these nicotine containing products: None How often do you have a drink containing alcohol: monthly or less Alcohol type: wine How many standard drinks containing alcohol do you have on a typical day: 1 or 2 How often do you have six or more drinks on one occasion: Never AUDIT-C Alcohol total score: 1 Non-prescribed substance use: denies use Caffeine: No service: No Exam Narrative: Exam Narrative: Pleasant. NAD. Breathing easily. Oropharynx is moist. Tender apartment across the upper abdomen more so in the epigastrium in the right hypogastrium/right upper quadrant. Sore generally in the abdomen now ?sensitive tummy?. Diminished bowel sounds. Heart with 2/6 mid systolic murmur. Some ectopic beats? Lungs are clear. Absent umbilicus. Well-healed surgical scars. Well-perfused without peripheral edema. Const: Vital Signs, click to edit/add: Vital Signs - 24 hr 06/04/25 12:11 06/04/25 13:44 06/04/25 13:45 Temperature 97.1 F L Pulse Rate 67 68 Pulse Rate [Right Pulse Oximeter] 76 Respiratory Rate 18 Blood Pressure Blood Pressure [Ri ght Upper Arm] 127/78 Pulse Oximetry 96 94 94 Oxygen Delivery Me thod Room Air 06/04/25 14:00 06/04/25 14:31 06/04/25 14:46 Temperature Pulse Rate 52 L 74 67 Pulse Rate [Right Pulse Oximeter] Respiratory Rate Blood Pressure 145/68 H 146/68 H Blood Pressure [Ri ght Upper Arm] Pulse Oximetry 95 94 96 Oxygen Delivery Me thod 06/04/25 15:00 Temperature Pulse Rate 53 L Pulse Rate [Right Pulse Oximeter] Respiratory Rate Blood Pressure 153/69 H Blood Pressure [Ri ght Upper Arm] Pulse Oximetry 95 Oxygen Delivery Me thod Documenting provider has reviewed patient's vital signs: yes Course Vital Signs Vital signs: Initial Vital Signs Temperature 97.1 F L 06/04/25 12:11 Temperature Source Temporal Artery Scan 06/04/25 12:11 Pulse Rate 76 06/04/25 12:11 Respiratory Rate 18 06/04/25 12:11 Blood Pressure 127/78 06/04/25 12:11 Blood Pressure Mean 94 06/04/25 12:11 Blood Pressure Position Sitting 06/04/25 12:11 Pulse Oximetry 96 06/04/25 12:11 Oxygen Delivery Method Room Air 06/04/25 12:11 Vital Signs Temperature 97.1 F L 06/04/25 12:11 Pulse Rate 76 06/04/25 12:11 Respiratory Rate 18 06/04/25 12:11 Blood Pressure 127/78 06/04/25 12:11 Pulse Oximetry 96 06/04/25 12:11 Oxygen Delivery Method Room Air 06/04/25 12:11 Temperature 97.1 F L 06/04/25 12:11 Pulse Rate 53 L 06/04/25 15:00 Respiratory Rate 18 06/04/25 12:11 Blood Pressure 153/69 H 06/04/25 15:00 Pulse Oximetry 95 06/04/25 15:00 Oxygen Delivery Method Room Air 06/04/25 12:11 Medications Administered Medications: Discontinued Medications Generic Name Dose Route Start Last Admin Trade Name Afia PRN Reason Stop Dose Admin Acetaminophen 1,000 mg 06/04/25 13:39 06/04/25 13:50 Acetaminophen 500 Mg Tablet PO 06/04/25 13:40 1,000 mg ONCE ONE Administration Sodium Chloride 1,000 mls @ 1,000 mls/hr 06/04/25 13:50 06/04/25 14:35 0.9 % Sodium Chloride 1000 Ml IV 06/04/25 14:49 1,000 mls/hr .Q1H ONE Administration Medical Decision Making MDM Narrative Medical decision making narrative: May have GERD complicating irritable bowel or simply with constipation. Is tender the right upper quadrant perhaps there is some biliary colic that has been occurring. Does not seem to have symptoms of colitis. Possibly diverticulitis. Gastric or duodenal ulcer? Seems to have numerous areas of discomfort. Less likely mesenteric adenitis. Less likely vascular disruption. Ileus? Does not appear to have a small-bowel obstruction. Think will check labs and see if that can direct more imaging. She notes difficulty in placing IV is or drawing blood historically. Does not feel she needs anything for pain or nausea. Labs do show elevated white count close to 15,000. Elevated CRP as well. Essentially normal transaminases. CRP elevated at 14.7. D-dimer elevated at 1.6. Will move towards IV contrasted CT scan. This shows some inflammatory changes around small bowel and the low abdomen by my independent review. Also rather large gallbladder. Some nephrolithiasis. Conference Coordinator is available past for limited abdominal ultrasound. This is done and per my conversation with them reporting normal gallbladder and adjacent findings. I did speak with Radiology when they called to discuss findings with concern of possible ingestion. Reviewing again with sterile that there have been no known concerning ingestions other than this lettuce that she mentioned. Radiology over-read below INDICATION: General abdominal pain, epigastric/right upper quadrant. TECHNIQUE: CT abdomen and pelvis acquired with 99 cc Isovue 370 IV contrast. COMPARISON: None. FINDINGS: Lower chest: Unremarkable. Liver: Normal in size and attenuation. No suspicious masses. Gallbladder and bile ducts: No stones or inflammation. No biliary dilatation. Pancreas: Moderate fatty replacement of pancreas. No adjacent inflammation. Spleen: Normal in size. Too small to characterize hypodense lesion in the upper pole of spleen measuring 9 millimeter, likely cyst or hemangioma. Adrenal glands: Small fat containing right adrenal nodule measuring 1.9 cm, likely adenoma or lipoma Kidneys: Bilateral kidneys are normal in size with symmetric enhancement. Nonobstructing right upper pole nephrolithiasis 4 millimeter. Parapelvic bilateral renal cysts. No hydronephrosis. No ureteric calculi. GI tract: Short-segment small bowel wall thickening in the lower abdomen with moderate adjacent inflammatory changes. There is apposition of two small bowel loops in the lower abdomen. Linear radiodensity is seen traversing from superiorly located inflamed small bowel to inferior small bowel loop. No adjacent free air or loculated/drainable fluid collection. Duodenal diverticulum. Colonic diverticulosis. Previous postsurgical changes of rectocele repair. Vasculature: Abdominal aorta is normal in caliber. Mild atherosclerosis. Lymph nodes: No lymphadenopathy. Peritoneum/Abdominal Wall: No free air or significant free fluid. Pelvis: Remote postsurgical changes of rectocele repair. Bones: Grade 1 anterolisthesis of L4 over L5. Multilevel advanced degenerative changes of the spine. IMPRESSION: 1. Short-segment edematous and inflamed small bowel loops in the anterior lower abdomen with linear radiodensity extending from the superior inflamed bowel loop to serosal surface of the inferiorly located inflamed bowel loop. Overall findings are concerning for foreign body, protruding/perforating a bowel loops with adjacent inflammatory changes. Correlate with any remote history of bowel surgery/suture material involving small bowel loops. Radiographic follow-up is recommended. 2. Nonobstructing right upper pole nephrolithiasis. 3. Colonic diverticulosis. 4. Bilateral parapelvic renal cysts. Please note that all CT scans at this facility use dose modulation, iterative reconstruction, and/or weight-based dosing when appropriate to reduce radiation dose to as low as reasonably achievable. Dictated by Margarito Lux MD @ 06/04/2025 3:12:09 PM ----- ADDENDUM ----- Findings were communicated to Dr. Lambert Kaplan at the time of dictation on 06/04/2025. Dictated by Margarito Lux MD @ Jun 04 2025 3:21PM (Electronically Signed) For Patients: As a result of the Century Cures Act, medical imaging exams and procedure reports are released immediately into your electronic medical record. You may view this report before your referring provider. If you have questions, please contact your health care provider. INDICATION: General abdominal pain, epigastric/right upper quadrant. TECHNIQUE: CT abdomen and pelvis acquired with 99 cc Isovue 370 IV contrast. COMPARISON: None. FINDINGS: Lower chest: Unremarkable. Liver: Normal in size and attenuation. No suspicious masses. Gallbladder and bile ducts: No stones or inflammation. No biliary dilatation. Pancreas: Moderate fatty replacement of pancreas. No adjacent inflammation. Spleen: Normal in size. Too small to characterize hypodense lesion in the upper pole of spleen measuring 9 millimeter, likely cyst or hemangioma. Adrenal glands: Small fat containing right adrenal nodule measuring 1.9 cm, likely adenoma or lipoma Kidneys: Bilateral kidneys are normal in size with symmetric enhancement. Nonobstructing right upper pole nephrolithiasis 4 millimeter. Parapelvic bilateral renal cysts. No hydronephrosis. No ureteric calculi. GI tract: Short-segment small bowel wall thickening in the lower abdomen with moderate adjacent inflammatory changes. There is apposition of two small bowel loops in the lower abdomen. Linear radiodensity is seen traversing from superiorly located inflamed small bowel to inferior small bowel loop. No adjacent free air or loculated/drainable fluid collection. Duodenal diverticulum. Colonic diverticulosis. Previous postsurgical changes of rectocele repair. Vasculature: Abdominal aorta is normal in caliber. Mild atherosclerosis. Lymph nodes: No lymphadenopathy. Peritoneum/Abdominal Wall: No free air or significant free fluid. Pelvis: Remote postsurgical changes of rectocele repair. Bones: Grade 1 anterolisthesis of L4 over L5. Multilevel advanced degenerative changes of the spine. IMPRESSION: 1. Short-segment edematous and inflamed small bowel loops in the anterior lower abdomen with linear radiodensity extending from the superior inflamed bowel loop to serosal surface of the inferiorly located inflamed bowel loop. Overall findings are concerning for foreign body, protruding/perforating a bowel loops with adjacent inflammatory changes. Correlate with any remote history of bowel surgery/suture material involving small bowel loops. Radiographic follow-up is recommended. 2. Nonobstructing right upper pole nephrolithiasis. 3. Colonic diverticulosis. 4. Bilateral parapelvic renal cysts. Please note that all CT scans at this facility use dose modulation, iterative reconstruction, and/or weight-based dosing when appropriate to reduce radiation dose to as low as reasonably achievable. Dictated by Margarito Lux MD @ 06/04/2025 3:12:09 PM Did discuss these findings with our general surgeon on-call. Returning to clarify narrative and repeat exam -- She did participate in a fish fay 6 days ago. Discomfort may have started the next day or 2 but that is a little uncertain. In any case definitely started to have more mid and low abdominal discomfort over the last couple of days accompanied by some degree of anorexia. On repeat exam I can appreciate more tenderness than I did before. She is still quite tender in the epigastrium and outer right upper quadrant. In the mid abdomen she is demonstrating some rebound in the former periumbilical area (absent umbilicus though palpable) as well as some guarding here and in the right mid abdomen. She is sensitive also to percussion in the mid abdomen. Spoke again with General surgery who has reviewed images. Suspect foreign body ingestion possible fishbone and anticipating exploratory surgery. Maty is willing to receive surgery here. Medical Records Medical records reviewed: Yes I reviewed the patient's medical records Lab Data Lab results reviewed: Yes I reviewed the patient's lab results Labs: Lab Results 06/04/25 06/04/25 06/04/25 Range/Units 13:10 14:27 14:29 WBC 14.62 H (4.50-11.00) K/uL RBC 4.31 (4.00-5.20) m/uL Hgb 13.3 (12.0-16.0) gm/dL Hct 41.2 (33.0-51.0) % MCV 96 (80-100) fL MCH 31 (26-34) pg MCHC 32 (32-36) gm/dL RDW Coeff of Octavia 14.0 (11.5-15.5) % Plt Count 223 (140-440) K/uL Neut % (Auto) 75.3 H (42.0-72.0) % Lymph % (Auto) 14.6 L (20-44) % [place] % (Auto) 9.6 (0.0-11.0) % Eos % (Auto) 0.3 (0.0-7.0) % Baso % (Auto) 0.1 (0.0-3.0) % Neut # (Auto) 11.00 H (1.7-7.0) K/uL Lymph # (Auto) 2.10 (0.90-2.90) K/uL [place]undy # (Auto) 1.40 H (0.00-0.90) K/UL Eos # (Auto) 0.00 (0.00-0.50) K/uL Baso # (Auto) 0.00 (0.00-0.30) K/uL Abs Immat Gran (auto) 0.00 (0.00-0.30) K/uL Imm/Tot Granulo (auto) 0.1 % D-Dimer Quant (PE/DVT) 1.55 H (0.00-0.50) ug/ml Sodium 136 (135-149) mmol/L Potassium 4.3 (3.6-5.1) mmol/L Chloride 102 (96-114) mmol/L Carbon Dioxide 29 (20-32) mmol/L Anion Gap 5 L (7-15) mEq/L BUN 17 (7-30) mg/dL Creatinine 0.8 (0.5-1.5) mg/dL Estimated Creat Clear 62.74 Estimated GFR 74 ml/min Glucose 129 H (60-115) mg/dL Calcium 9.4 (8.4-10.6) mg/dL Total Bilirubin 1.8 H (0.1-1.5) mg/dL Direct Bilirubin 0.2 (0.0-0.5) mg/dL AST 22 (12-35) U/L ALT 16 (4-35) U/L Alkaline Phosphatase 78 (40-150) U/L C-Reactive Protein 14.7 H (0.5-1.0) mg/dL Total Protein 7.3 (6.0-8.3) g/dL Albumin 4.1 (3.3-5.0) g/dL Lipase 20 L (23-300) U/L Urine Color [place] A (Yellow) Urine Appearance Slightly Cloudy A (Clear) Urine pH 7.0 (5.0-8.5) Ur Specific [place] 1.010 (1.000-1.030) Urine Protein Negative (Negative) Urine Glucose (UA) Negative (Negative) Urine Ketones Negative (Negative) Urine Blood Trace-intact A (Negative) Urine Nitrite Negative (Negative) Urine Bilirubin Negative (Negative) Urine Urobilinogen 1.0 (0.2-1.0) Ur Leukocyte Esterase Negative (Negative) Urine RBC 0-2 (0-2) Urine WBC 0-2 (0-5) Ur Squamous Epith Cells Few (None-Few) Urine Bacteria None (None) Lab Acknowledgement Test Added ECG Data Attestation: I personally reviewed and interpreted this ECG as follows: (Sinus rhythm with PVC. Rate of 66) Discharge Plan Discharge Clinical Impression: Perforated small intestine Patient Disposition: XFER to OR Condition: Stable Follow Up/Referrals: Genie Cruz PA-C [Primary Care Provider, [facility]]
[2025-06-04 13:29] LABS: Hematocrit* 41.2 % (33.0-51.0); Hemoglobin* 13.3 gm/dL (12.0-16.0); Immature Granulocytes Pct Auto 0.1 %; Mean Corpuscular HGB Conc 32 gm/dL (32-36); Mean Corpuscular Hemoglobin 31 pg (26-34); Mean Corpuscular Volume 96 fL (80-100); RDW Coefficient of Variation % 14.0 % (11.5-15.5); Red Blood Count* 4.31 m/uL (4.00-5.20); White Blood Count* 14.62 K/uL (4.50-11.00)
[2025-06-04 13:31] LABS: Immature Granulocytes Abs Auto 0.00 K/uL (0.00-0.30); Lymphocytes Absolute Auto 2.10 K/uL (0.90-2.90); Slide Review Reflex No
[2025-06-04 13:33] LABS: Albumin* 4.1 g/dL (3.3-5.0); Chloride* 102 mmol/L (96-114); Potassium* 4.3 mmol/L (3.6-5.1); Sodium* 136 mmol/L (135-149)
[2025-06-04 13:35] LABS: Blood Urea Nitrogen* 17 mg/dL (7-30); Creatinine* 0.8 mg/dL (0.5-1.5); Est. Creatinine Clearance* 62.74; Estimated Glomerular Filt Rate 74 ml/min
[2025-06-04 13:36] LABS: Alanine Aminotransferase* 16 U/L (4-35); Alkaline Phosphatase* 78 U/L (40-150); Anion Gap 5 mEq/L (7-15); Aspartate Amino Transferase* 22 U/L (12-35); Bilirubin Direct* 0.2 mg/dL (0.0-0.5); Bilirubin Total* 1.8 mg/dL (0.1-1.5); Calcium* 9.4 mg/dL (8.4-10.6); Carbon Dioxide* 29 mmol/L (20-32); Glucose* 129 mg/dL (60-115); Total Protein* 7.3 g/dL (6.0-8.3)
[2025-06-04] MEDS: ACETAMINOPHEN 500 MG TABLET 1000 MG PO (13:50)
[2025-06-04 13:54] LABS: D Dimer Quantitative* 1.55 ug/ml (0.00-0.50)
--- NOTE | 2025-06-04 14:01 | CRLHL7_ITS ---
For Patients: As a result of the Century Cures Act, medical imaging exams and procedure reports are released immediately into your electronic medical record. You may view this report before your referring provider. If you have questions, please contact your health care provider. INDICATION: General abdominal pain, epigastric/right upper quadrant. TECHNIQUE: CT abdomen and pelvis acquired with 99 cc Isovue 370 IV contrast. COMPARISON: None. FINDINGS: Lower chest: Unremarkable. Liver: Normal in size and attenuation. No suspicious masses. Gallbladder and bile ducts: No stones or inflammation. No biliary dilatation. Pancreas: Moderate fatty replacement of pancreas. No adjacent inflammation. Spleen: Normal in size. Too small to characterize hypodense lesion in the upper pole of spleen measuring 9 millimeter, likely cyst or hemangioma. Adrenal glands: Small fat containing right adrenal nodule measuring 1.9 cm, likely adenoma or lipoma Kidneys: Bilateral kidneys are normal in size with symmetric enhancement. Nonobstructing right upper pole nephrolithiasis 4 millimeter. Parapelvic bilateral renal cysts. No hydronephrosis. No ureteric calculi. GI tract: Short-segment small bowel wall thickening in the lower abdomen with moderate adjacent inflammatory changes. There is apposition of two small bowel loops in the lower abdomen. Linear radiodensity is seen traversing from superiorly located inflamed small bowel to inferior small bowel loop. No adjacent free air or loculated/drainable fluid collection. Duodenal diverticulum. Colonic diverticulosis. Previous postsurgical changes of rectocele repair. Vasculature: Abdominal aorta is normal in caliber. Mild atherosclerosis. Lymph nodes: No lymphadenopathy. Peritoneum/Abdominal Wall: No free air or significant free fluid. Pelvis: Remote postsurgical changes of rectocele repair. Bones: Grade 1 anterolisthesis of L4 over L5. Multilevel advanced degenerative changes of the spine. IMPRESSION: 1. Short-segment edematous and inflamed small bowel loops in the anterior lower abdomen with linear radiodensity extending from the superior inflamed bowel loop to serosal surface of the inferiorly located inflamed bowel loop. Overall findings are concerning for foreign body, protruding/perforating a bowel loops with adjacent inflammatory changes. Correlate with any remote history of bowel surgery/suture material involving small bowel loops. Radiographic follow-up is recommended. 2. Nonobstructing right upper pole nephrolithiasis. 3. Colonic diverticulosis. 4. Bilateral parapelvic renal cysts. Please note that all CT scans at this facility use dose modulation, iterative reconstruction, and/or weight-based dosing when appropriate to reduce radiation dose to as low as reasonably achievable. Dictated by Margarito Lux MD @ 06/04/2025 3:12:09 PM (Electronically Signed)
--- NOTE | 2025-06-04 14:29 | CRLHL7_ITS ---
For Patients: As a result of the Cures Act, medical imaging exams and procedure reports are released immediately into your electronic medical record. You may view this report before your referring provider. If you have questions, please contact your health care provider. INDICATION: Abdominal pain. COMPARISON: CT scan of the abdomen and pelvis dated 04 June 2025. FINDINGS: An abdominal ultrasound shows a normal appearance of the gallbladder. No gallstones in the gallbladder. No bile duct dilation with the common bile duct measuring 2 mm. Impression : 1. No gallstones. Normal appearance of the gallbladder. 2. No bile duct dilation. Dictated by Bahman Rich MD @ 06/04/2025 3:17:53 PM Dictated by: Bahman Rich MD @ 06/04/2025 15:18:08 (Electronically Signed)
[2025-06-04 14:35] LABS: Appearance Urine Slightly Cloudy (Clear)
--- NOTE | 2025-06-04 16:32 | CRLHL7_ITS ---
For Patients: As a result of the Century Cures Act, medical imaging exams and procedure reports are released immediately into your electronic medical record. You may view this report before your referring provider. If you have questions, please contact your health care provider. INDICATION: Epigastric pain TECHNIQUE: Single-view chest. FINDINGS: Low lung volumes. Probable basilar granulomas. No airspace consolidation. No effusion or pneumothorax. Dictated by Samreen Rich MD @ 06/04/2025 5:16:05 PM (Electronically Signed)
--- NOTE | 2025-06-04 18:25 | PM.GSHP ---
History of Present Illness History of Present Illness Date Seen: 06/04/25 Chief complaint: Abdominal pain Narrative: Maty Martini is a 84 year old female presented to emergency room with mid abdominal pain that started ?few days ago?. Patient felt that the pain was increasing gradually and yesterday the pain was ?severe?. The pain was described as crampy. Today the pain was worse and patient decided to present to emergency room. Patient was passing gas. She denied vomiting but had nausea. She was eating well in the last couple days. She denied fevers. I personally reviewed her workup in the emergency room. Patient was found to have elevated WBC of 14. An abdominal CT was obtained that showed 2 short segments of small intestine with wall thickening and inflammation. Those 2 segments were connected by a radio opaque foreign body that was thought to be piercing through both segments of small intestine. This was concerning for a foreign body perforating the small intestine. Patient's history is significant for rectal prolapse repair with development of incisional hernia. Patient then had robotic converted to open incisional hernia repair with Bard mesh spanning the entire length of the abdominal wall from the twelfth rib down to the pubic bone. From my review of her operative report from 2020 Bard mesh 26 x36 cm was placed in the retrorectal space. Patient also has a history of hysterectomy with bilateral salpingo-oophorectomy and appendectomy. Review of Systems Narrative: General: no fevers HENT: no problems swallowing CV: no shortness of breath Resp: no cough GI: No nausea, vomiting, abdominal pain : no dysuria, no increased urinary frequency, no hematuria Skin: no new rashes Musculoskeletal: no back pain Neuro: no muscle weakness Psyche: no depression, no anxiety PFSH PFS Medical History (Updated 06/05/25 @ 12:17 by Anson Zurita MD) Chronic diarrhea ?K52.9 - Noninfective gastroenteritis and colitis, unspecified (ICD-10) Hyperlipemia ?E78.5 - Hyperlipidemia, unspecified (ICD-10) Sinus bradycardia ?R00.1 - Bradycardia, unspecified (ICD-10) Colon polyp ?K63.5 - Polyp of colon (ICD-10) Varicose veins of both lower extremities ?I83.93 - Asymptomatic varicose veins of bilateral lower extremities (ICD-10) Bilateral lower extremity edema ?R60.0 - Localized edema (ICD-10) Intussusception of rectum ?K56.1 - Intussusception (ICD-10) Incontinence of feces ?R15.9 - Full incontinence of feces (ICD-10) Type 2 diabetes mellitus without complications ?E11.9 - Type 2 diabetes mellitus without complications (ICD-10) Urinary incontinence ?R32 - Unspecified urinary incontinence (ICD-10) GERD (gastroesophageal reflux disease) ?K21.9 - Gastro-esophageal reflux disease without esophagitis (ICD-10) Sleep apnea ?G47.30 - Sleep apnea, unspecified (ICD-10) Obesity, Class III, BMI 40-49.9 (morbid obesity) ?E66.01 - Morbid (severe) obesity due to excess calories (ICD-10) Surgical History (Updated 06/05/25 @ 09:47 by Alyssa Day MD) H/O breast biopsy ?Z98.890 - Other specified postprocedural states (ICD-10) Hx of esophagogastroduodenoscopy ?Z98.890 - Other specified postprocedural states (ICD-10) Hx of colonoscopy ?Z98.890 - Other specified postprocedural states (ICD-10) H/O cataract removal with insertion of prosthetic lens ?Z98.49 - Cataract extraction status, unspecified eye (ICD-10) ?Z96.1 - Presence of intraocular lens (ICD-10) S/P total knee arthroplasty ?Z96.659 - Presence of unspecified artificial knee joint (ICD-10) History of appendectomy (1962) ?Z90.49 - Acquired absence of other specified parts of digestive tract (ICD-10) History of rectal surgery (12/2017) ?Z98.890 - Other specified postprocedural states (ICD-10) H/O hernia repair (10/2020) ?Z98.890 - Other specified postprocedural states (ICD-10) ?Z87.19 - Personal history of other diseases of the digestive system (ICD-10) H/O: hysterectomy (~1991) ?Z90.710 - Acquired absence of both cervix and uterus (ICD-10) History of tonsillectomy (1967) ?Z90.89 - Acquired absence of other organs (ICD-10) Family History Mother Colon cancer Pacemaker Diabetes High blood pressure Father Diabetes Stroke Myocardial infarction Sister High blood pressure Sleep apnea Aunt Breast cancer Aunt Breast cancer Social History Narrative: . Lives with . Lifelong nonsmoker. Denies alcohol use and recreational drug use. Full code. What is your current living situation?: I presently have a place to live Problems where you live: no known problems In the past 12 months, utilities in danger of being shut off: no In past 12 months, lack of transportation kept you from medical appts, meetings, work, or getting things needed for daily living: no In the past 12 mos, have been you worried that your food would run out before you had money to buy more?: never true In the past 12 mos, the food you bought just didn't last and you didn't have money to buy more?: never true Highest level of school completed/degree received: Bachelor's degree Smoking Status: Never smoker Do you use any of these nicotine containing products: None How often do you have a drink containing alcohol: monthly or less Alcohol type: wine How many standard drinks containing alcohol do you have on a typical day: 1 or 2 How often do you have six or more drinks on one occasion: Never AUDIT-C Alcohol total score: 1 Non-prescribed substance use: denies use Caffeine: No How often does anyone, including family, friends and others, physically hurt you: never How often does anyone, including family, friends and others, insult or talk down to you: never How often does anyone, including family, friends and others, threaten you with harm: never How often does anyone, including family, friends and others, scream or curse at you: never service: No Meds Home Medications and Allergies Home Medications ?Medication ?Instructions ?Recorded ?Confirmed ?Type omega-3 fatty acids-fish oil 360 2 cap PO QDAY 05/29/22 06/05/25 History mg-1,200 mg capsule (Fish Oil) multivitamin 1 tab PO DAILY 09/23/22 06/05/25 History omeprazole 40 mg capsule,delayed 40 mg PO DAILY 09/23/22 06/05/25 History release acetaminophen 500 mg capsule 500 - 1,000 mg (1 - 2 x 500 mg) PO 09/24/22 06/05/25 Rx Q6H PRN pain #100 caps Lactobacillus rhamnosus GG 10 1 cap PO DAILY 06/05/25 06/05/25 History billion cell capsule (Culturelle) atorvastatin 10 mg tablet 10 mg PO QPM 06/05/25 06/05/25 History calcium carbonate (Calcium 600) 1,200 mg PO DAILY 06/05/25 06/05/25 History cholecalciferol (vitamin D3) 25 1,000 unit PO DAILY 06/05/25 06/05/25 History mcg (1,000 unit) tablet glucosamine-chondroitin 500 mg-400 1 cap PO TID 06/05/25 06/05/25 History mg capsule polyethylene glycol 3350 17 17 g PO DAILY PRN 06/05/25 06/05/25 History gram/dose oral powder (ClearLax) tirzepatide 7.5 mg/0.5 mL 7.5 mg subcut Q7D 06/05/25 06/05/25 History subcutaneous pen injector (Mounchenro) Allergies Allergy/AdvReac Type Severity Reaction Status Date / Time No Known Drug Allergies Allergy Verified 06/04/25 22:13 Exam Narrative: Exam Narrative: General appearance: Alert, cooperative, and in no distress Pulmonary: Chest symmetric, lungs clear bilaterally Cardiovascular Heart: Regular rate and rhythm, S1, S2, no murmurs/rubs/gallops Gastrointestinal Abdominal: soft, not distended, tender to palpation near previous umbilicus (umbilicus is currently surgically absent), with peritoneal signs, midline incision from previous hernia repair is well healed. Psychiatric: Alert, cooperative, normal affect. Const: Vital Signs, click to edit/add: Vital Signs - 24 hr 06/04/25 12:11 06/04/25 13:44 06/04/25 13:45 Temperature 97.1 F L Pulse Rate 67 68 Pulse Rate [Right Pulse Oximeter] 76 Respiratory Rate 18 Blood Pressure Blood Pressure [Ri ght Upper Arm] 127/78 Pulse Oximetry 96 94 94 Oxygen Delivery Me thod Room Air 06/04/25 14:00 06/04/25 14:31 06/04/25 14:46 Temperature Pulse Rate 52 L 74 67 Pulse Rate [Right Pulse Oximeter] Respiratory Rate Blood Pressure 145/68 H 146/68 H Blood Pressure [Ri ght Upper Arm] Pulse Oximetry 95 94 96 Oxygen Delivery Me thod 06/04/25 15:00 Temperature Pulse Rate 53 L Pulse Rate [Right Pulse Oximeter] Respiratory Rate Blood Pressure 153/69 H Blood Pressure [Ri ght Upper Arm] Pulse Oximetry 95 Oxygen Delivery Me thod Progress Note:A&P Assessment and plan (1) Abdominal pain: Status: Acute Plan 84-year-old female presented to emergency room with several days of abdominal pain who is noted to have 2 segments of inflamed small intestine with possible foreign body perforating the small intestine. I discussed with the patient and her my clinical findings and her CT findings. I discussed with the patient that I am concerned that her foreign body is perforating small bowel wall and going into the second segment of small bowel. I recommended to proceed with diagnostic laparoscopy and exploratory laparotomy with foreign body removal. Patient is aware that her mesh would have to be cut to allow access to her abdomen. The procedure was discussed in detail. The risks associated procedure including infection, bleeding, injury to intra-abdominal organs, the need for additional procedures, and hernia recurrence were all discussed with the patient, and she agreed to proceed.
[2025-06-04] MEDS: LACTATED RINGERS 1000 ML 1,000 ML 125 ML IV ×2 (18:30→20:38)
--- NOTE | 2025-06-04 18:35 | PC.NURSE ---
pt to OR via wheelchair at this time, to OR waiting area and pt belongings to CCU 4, report given
[2025-06-04] MEDS: PIPERACILLIN/TAZOBACTAM 3.375 GM in 0.9 % SODIUM CHLORIDE Mini-bag 100 ML IVPB (18:45)
[2025-06-04] MEDS: LIDOCAINE 1%-EPI 1:100,000 20 ML INFILTRATI (21:00)
[2025-06-04] MEDS: BUPIVACAINE 0.25% 30 ML INJECTION (21:00)
--- NOTE | 2025-06-04 21:20 | CRLHL7_ITS ---
For Patients: As a result of the Century Cures Act, medical imaging exams and procedure reports are released immediately into your electronic medical record. You may view this report before your referring provider. If you have questions, please contact your health care provider. Indication: NG tube placement Technique: Chest radiograph one view Comparison: Same day CT abdomen and pelvis. Same day chest radiograph. Findings: Lines and tubes: Enteric decompression tube side port is in the gastric fundus. Lungs: Lung volumes are low, but lungs are clear. No pleural effusion or pneumothorax. Heart and mediastinum: Heart and mediastinum are stable. Other: No sign of free air. Impression: 1. Enteric decompression tube side port is in the gastric fundus. Consider advancement by 3.5 cm. 2. Lung volumes are low, but lungs are clear. Dictated by Sarbjit Wolff MD @ 06/04/2025 10:48:10 PM (Electronically Signed)
--- NOTE | 2025-06-04 21:22 | P.GSOP_ITS ---
Operative Note Date of procedure: 06/04/25 Pre-op diagnosis: 1. Inflammation of 2 segments of small intestine with likely foreign body perforating the small intestine. 2. Severe obesity with BMI of 40. 3. History of incisional hernia repair with large permanent retro rectus ventral mesh. Post-op diagnosis: 1. Thin metal wire like foreign body approximately 12 mm long protruding through small intestine (question bristle of the wire brush). 2. Severe obesity with BMI of 40. 3. Incisional hernia repair with large permanent retro rectus ventral mesh. Type of Procedure: 1. Diagnostic laparoscopy. 2. Exploratory laparotomy. 3. Removal of foreign body with Small bowel resection. Indications: 84-year-old female presented to emergency room with several days of worsening abdominal pain. Patient's pain was periumbilical and was getting more severe. The pain was described as crampy. Patient had nausea but no vomiting. She was passing gas. Patient was at a fish fay several days ago. Upon her workup in emergency room she was found to have elevated WBC of 14. An abdominal CT was obtained that showed 2 short segments of small intestine with small bowel wall thickening and inflammation and a radio-opaque foreign body appearing to protrude from 1 segment of small intestine to the second adjacent segment. On clinical exam patient had tenderness to palpation in the periumbilical abdomen with rebound tenderness. Given patient's clinical history and her CT findings, diagnostic laparoscopy and exploratory laparotomy was recommended. The procedure was discussed in detail. The risks associated procedure including infection, bleeding, injury to intra-abdominal organs, incisional hernia recurrence, and the need for additional procedures were all discussed with the patient, and she agreed to proceed. Procedure Description: After discussing the risks and benefits of the procedure, the patient signed informed consent.? The operative site was marked and the patient was brought to the operating room and placed on the operating table in supine position.? Care was taken to pad the patient's pressure points.?? The patient was then intubated by anesthesia. Whitt catheter was placed under sterile conditions.?? The operative site was then prepped and draped in the usual sterile fashion.? A time-out was then performed. Skin incision was made in the left upper quadrant with a scalpel. AV support was then placed and abdomen was entered by visualizing the layers of the abdominal wall. The abdomen was insufflated and no intra-abdominal organ injury was identified. Omental adhesions were noted in the superior abdomen. In the inferior abdomen inflamed segment of small intestine was noted and that was adherent to the anterior abdominal wall. Mesh was noted in preperitoneal space in the superior abdomen. With palpation of the abdominal wall, I identified the area of midline incision with no adhesions. This was just superior to the adherent small bowel. Skin incision was then made in the abdomen through a previously well-healed incision. This incision was on the right of the abdomen. Subcutaneous fat was then divided with cautery down to the anterior fascia. The anterior fascia was grasped with Clark clamps and incised with cautery. Muscle was encountered and this was divided with cautery. Posterior to the muscle the mesh was identified and this was grasped with Clark clamps and incised with suture scissors. Peritoneum was then grasped posterior to the mesh and incised with Metzenbaum scissors. The abdomen was entered. The incision was extended inferiorly and superiorly in the mid abdomen just long enough to accommodate placement of a medium Ronni retractor. The camera was then removed and 5 mm port was removed from the left upper quadrant. The mesh was incised with scissors to allow the incision to be extended. The medium Ronni retractor was then placed into the abdominal wall. The inflamed segment of small intestine was palpated and was bluntly dissected from the anterior abdominal wall. I carefully kept to adherence segments of small bowel together and those were eviscerated together. When examining between the 2 inflamed segments of small intestine, I was able to see a thin metal wire like foreign body pr otruding from 1 segment of small intestine and 1 of the ends was located completely outside of the small intestine. This was grasped with a Justina clamp and removed from the small and intestine. This had an appearance of a thin metal wire that could possibly be from a wire brush used to clean a grill. This was sent to pathology as foreign body. The 2 suspect segments of small intestine that were inflamed were in the same loop of the small intestine. I then proceeded with small-bowel resection. Green towels were placed around the Ronni retractor. The mesenteric window was made adjacent to the healthy small intestine in the proximal and distal end with cautery. The proximal and distal end of small intestine was then divided with a blue load of ARIANE stapler. Small bowel mesentery of the resected segment was divided with clamps and Vicryl ties. The resected small bowel was approximately 25 cm and was in the distal jejunum. We then proceeded with [id number] functional end to end anastomosis. The stapled ends of the small intestine were aligned with the silk stay suture. Small-bowel enterotomy was then made with cautery in the proximal and distal ends. Small amount of fluid that came out from the entered bowel and was suctioned out. The [id number] anastomosis was then made by stapling antimesenteric side of the small intestine with blue load of 100 ARIANE stapler. The staple line was examined from the inside and 1 area of the staple line was noted to be bleeding. This was oversewn with a silk suture. No further bleeding was seen inside of created anastomosis. The common enterotomy was then closed with interrupted 3-0 silk Lembert sutures. The anastomosis was patent and well perfused. A crotch stitch was placed with 3-0 silk suture. Small bowel mesenteric defect was then closed with a running 3-0 Vicryl suture. The distal small bowel was eviscerated and examined to the level of the ileocecal valve. No adhesions were noted and no further areas of inflammation were noted. The small bowel was then placed into the abdomen and anastomosis was placed into the abdomen. All the dirty towels were removed and Ronni retractor was removed. The surgeon and assistants changed gloves. Abdomen was then irrigated with warm normal saline. Hemostasis was achieved with cautery. Preperitoneal mesh was then closed with a running 0-0 PDS suture. I placed 3 [id number] Vicryl sutures to help reapproximate the mesh. The anterior fascia was then closed over the closed mesh with 2 running 0-0 Maxon sutures. Local anesthetic was injected in the surgical site. Subcutaneous space of surgical incision was then irrigated with normal saline. Subcutaneous space was reapproximated with interrupted 0-0 Vicryl sutures. The dermis was then reapproximated with 3-0 Vicryl suture. The left upper quadrant port was closed with 4-0 Monocryl stitch. The skin of the midline incision was then closed with andrea. Steri- Strips were placed over the left upper quadrant port. Sterile gauze was placed over the midline incision. Sterile dressings were then applied. ? The patient was then woken and transported to the recovery area in stable condition. ? The patient tolerated the procedure well. Findings: A loop of small intestine with 2 short segments of inflamed small bowel was identified. In between those 2 adherent inflamed segments of small bowel I identified a thin wire like foreign body and that was removed. This was the cause of perforation. The affected loop of small intestine was resected. Anesthesia: GETA Surgeon: Alyssa Day MD Estimated blood loss (mL): 20 Additional Specimen Information: 1. Foreign body in perforated small bowel. 2. Resected small bowel. Condition: stable Disposition: PACU
--- NOTE | 2025-06-04 21:27 | PM.IMCN1 ---
Date of Consult Consult date: 06/04/25 Primary Care Provider: Genie Cruz PA-C Consult Narrative Narrative: Maty Martini is a 84 year old female with past medical history of obesity, HLD, type 2 diabetes and sinus bradycardia and ALLISON on CPAP who presents to the ED with severe abdominal pain and imaging showed 2 short segments of small intestine, inflamed and connected by foreign body that is radiopaque. General surgery team was consulted and took patient to the OR for concern of a perforation of the small bowel. Currently is S/p Exploratory laparotomy & removal of foreign body with Small bowel resection. Hospitalist team is consulted to help with management of chronic medical conditions. Reviewing her primary care physician office visit in January 2025, patient's A1c was 6.0 at that timer. She reports no recent edema and has discontinued the use of torsemide. She has been tolerating Mounjaro well and administers it consistently on the same day each week. She does not monitor her blood glucose levels at home. She has discontinued glipizide since starting Mounjaro. She takes omeprazole daily. Review of Systems Status of ROS: Reports: 6 or more systems reviewed and unremarkable except as noted in History and below [facility] Medical History (Updated 06/04/25 @ 22:05 by Montserrat Bergeron MD) Hyperlipemia ?E78.5 - Hyperlipidemia, unspecified (ICD-10) Sinus bradycardia ?R00.1 - Bradycardia, unspecified (ICD-10) Colon polyp ?K63.5 - Polyp of colon (ICD-10) Varicose veins of both lower extremities ?I83.93 - Asymptomatic varicose veins of bilateral lower extremities (ICD-10) Bilateral lower extremity edema ?R60.0 - Localized edema (ICD-10) Intussusception of rectum ?K56.1 - Intussusception (ICD-10) Incontinence of feces ?R15.9 - Full incontinence of feces (ICD-10) Type 2 diabetes mellitus without complications ?E11.9 - Type 2 diabetes mellitus without complications (ICD-10) Urinary incontinence ?R32 - Unspecified urinary incontinence (ICD-10) GERD (gastroesophageal reflux disease) ?K21.9 - Gastro-esophageal reflux disease without esophagitis (ICD-10) Sleep apnea ?G47.30 - Sleep apnea, unspecified (ICD-10) Obesity, Class III, BMI 40-49.9 (morbid obesity) ?E66.01 - Morbid (severe) obesity due to excess calories (ICD-10) Surgical History H/O breast biopsy ?Z98.890 - Other specified postprocedural states (ICD-10) Hx of esophagogastroduodenoscopy ?Z98.890 - Other specified postprocedural states (ICD-10) Hx of colonoscopy ?Z98.890 - Other specified postprocedural states (ICD-10) H/O cataract removal with insertion of prosthetic lens ?Z98.49 - Cataract extraction status, unspecified eye (ICD-10) ?Z96.1 - Presence of intraocular lens (ICD-10) S/P total knee arthroplasty ?Z96.659 - Presence of unspecified artificial knee joint (ICD-10) History of appendectomy (1961) ?Z90.49 - Acquired absence of other specified parts of digestive tract (ICD-10) History of rectal surgery (12/2017) ?Z98.890 - Other specified postprocedural states (ICD-10) H/O hernia repair (10/2020) ?Z98.890 - Other specified postprocedural states (ICD-10) ?Z87.19 - Personal history of other diseases of the digestive system (ICD-10) H/O: hysterectomy (~1991) ?Z90.710 - Acquired absence of both cervix and uterus (ICD-10) History of tonsillectomy (1967) ?Z90.89 - Acquired absence of other organs (ICD-10) Family History Mother Colon cancer Pacemaker Diabetes High blood pressure Father Diabetes Stroke Myocardial infarction Sister High blood pressure Sleep apnea Aunt Breast cancer Aunt Breast cancer Social History Narrative: . Lives with . Lifelong nonsmoker. Denies alcohol use and recreational drug use. Full code. Smoking Status: Never smoker Do you use any of these nicotine containing products: None How often do you have a drink containing alcohol: monthly or less Alcohol type: wine How many standard drinks containing alcohol do you have on a typical day: 1 or 2 How often do you have six or more drinks on one occasion: Never AUDIT-C Alcohol total score: 1 Non-prescribed substance use: denies use Caffeine: No service: No Meds Home Medications and Allergies Home Medications ?Medication ?Instructions ?Recorded ?Confirmed ?Type antiarthritic combination no.2 900 900 mg PO DAILY 05/29/22 03/24/23 History mg tablet (glucosamine-chondroitin) cholecalciferol (vitamin D3) 10 10 mcg PO QDAY 05/29/22 03/24/23 History mcg (400 unit) capsule lactobacillus combination no.9 4 4,000 mmu cells PO QDAY 05/29/22 03/24/23 History billion cell capsule (Adult 50 Plus Probiotic) omega-3 fatty acids-fish oil 360 1 cap PO QDAY 05/29/22 03/24/23 History mg-1,200 mg capsule (Fish Oil) Walker- 2 Wheels #1 ea 09/16/22 11/08/22 Rx multivitamin 1 tab PO DAILY 09/23/22 03/24/23 History omeprazole 40 mg capsule,delayed 40 mg PO DAILY 09/23/22 03/24/23 History release acetaminophen 500 mg capsule 500 - 1,000 mg (1 - 2 x 500 mg) PO 09/24/22 03/24/23 Rx Q6H PRN pain #100 caps buspirone 5 mg tablet 5 mg PO BID 03/24/23 03/24/23 History clotrimazole-betamethasone 1 applic topical BID 03/24/23 03/24/23 History %-0.05 % topical cream furosemide 20 mg tablet 20 mg PO DAILY 03/24/23 03/24/23 History magnesium citrate 100 mg capsule 200 mg PO QDAY 03/24/23 03/24/23 History solifenacin 5 mg tablet 5 mg PO DAILY 03/24/23 03/24/23 History Allergies Allergy/AdvReac Type Severity Reaction Status Date / Time No Known Drug Allergies Allergy Verified 06/04/25 22:13 Exam Narrative: Exam Narrative: Physical exam GENERAL: Comfortable, no acute distress. NG tube in. HEAD AND NECK: Atraumatic, normocephalic CARDIOVASCULAR: RRR. Normal S1, S2. No murmurs. RESPIRATORY: Clear to auscultation B/L. Good air entry B/L. No wheezes or rhonchi. GASTROINTESTINAL: Obese, clean Steri-Strip on the abdominal wound. NEUROLOGY: Alert, awake. Normal speech. Const: Vital Signs, click to edit/add: Vital Signs - 24 hr 06/04/25 12:11 06/04/25 13:44 06/04/25 13:45 Temperature 97.1 F L Pulse Rate 67 68 Pulse Rate [Right Pulse Oximeter] 76 Respiratory Rate 18 Blood Pressure Blood Pressure [Ri ght Upper Arm] 127/78 Pulse Oximetry 96 94 94 Oxygen Delivery Me thod Room Air 06/04/25 14:00 06/04/25 14:31 06/04/25 14:46 Temperature Pulse Rate 52 L 74 67 Pulse Rate [Right Pulse Oximeter] Respiratory Rate Blood Pressure 145/68 H 146/68 H Blood Pressure [Ri ght Upper Arm] Pulse Oximetry 95 94 96 Oxygen Delivery Me thod 06/04/25 15:00 Temperature Pulse Rate 53 L Pulse Rate [Right Pulse Oximeter] Respiratory Rate Blood Pressure 153/69 H Blood Pressure [Ri ght Upper Arm] Pulse Oximetry 95 Oxygen Delivery Me thod Labs Labs: Short CBC 06/04/25 Range/Units 13:10 WBC 14.62 H (4.50-11.00) K/uL Hgb 13.3 (12.0-16.0) gm/dL Hct 41.2 (33.0-51.0) % Plt Count 223 (140-440) K/uL BMP 06/04/25 13:10 Sodium 136 Potassium 4.3 Chloride 102 Carbon Dioxide 29 BUN 17 Creatinine 0.8 Glucose 129 H Calcium 9.4 Liver Function 06/04/25 Range/Units 13:10 Total Bilirubin 1.8 H (0.1-1.5) mg/dL Direct Bilirubin 0.2 (0.0-0.5) mg/dL AST 22 (12-35) U/L ALT 16 (4-35) U/L Alkaline Phosphatase 78 (40-150) U/L Albumin 4.1 (3.3-5.0) g/dL Urine 06/04/25 Range/Units 14:27 Urine Color [place] A (Yellow) Urine Appearance Slightly Cloudy A (Clear) Urine pH 7.0 (5.0-8.5) Ur Specific [place] 1.010 (1.000-1.030) Urine Protein Negative (Negative) Urine Glucose (UA) Negative (Negative) Imaging CT scan - abdomen: Radiologist's impression: INDICATION: General abdominal pain, epigastric/right upper quadrant. TECHNIQUE: CT abdomen and pelvis acquired with 99 cc Isovue 370 IV contrast. COMPARISON: None. FINDINGS: Lower chest: Unremarkable. Liver: Normal in size and attenuation. No suspicious masses. Gallbladder and bile ducts: No stones or inflammation. No biliary dilatation. Pancreas: Moderate fatty replacement of pancreas. No adjacent inflammation. Spleen: Normal in size. Too small to characterize hypodense lesion in the upper pole of spleen measuring 9 millimeter, likely cyst or hemangioma. Adrenal glands: Small fat containing right adrenal nodule measuring 1.9 cm, likely adenoma or lipoma Kidneys: Bilateral kidneys are normal in size with symmetric enhancement. Nonobstructing right upper pole nephrolithiasis 4 millimeter. Parapelvic bilateral renal cysts. No hydronephrosis. No ureteric calculi. GI tract: Short-segment small bowel wall thickening in the lower abdomen with moderate adjacent inflammatory changes. There is apposition of two small bowel loops in the lower abdomen. Linear radiodensity is seen traversing from superiorly located inflamed small bowel to inferior small bowel loop. No adjacent free air or loculated/drainable fluid collection. Duodenal diverticulum. Colonic diverticulosis. Previous postsurgical changes of rectocele repair. Vasculature: Abdominal aorta is normal in caliber. Mild atherosclerosis. Lymph nodes: No lymphadenopathy. Peritoneum/Abdominal Wall: No free air or significant free fluid. Pelvis: Remote postsurgical changes of rectocele repair. Bones: Grade 1 anterolisthesis of L4 over L5. Multilevel advanced degenerative changes of the spine. IMPRESSION: 1. Short-segment edematous and inflamed small bowel loops in the anterior lower abdomen with linear radiodensity extending from the superior inflamed bowel loop to serosal surface of the inferiorly located inflamed bowel loop. Overall findings are concerning for foreign body, protruding/perforating a bowel loops with adjacent inflammatory changes. Correlate with any remote history of bowel surgery/suture material involving small bowel loops. Radiographic follow-up is recommended. 2. Nonobstructing right upper pole nephrolithiasis. 3. Colonic diverticulosis. 4. Bilateral parapelvic renal cysts. Please note that all CT scans at this facility use dose modulation, iterative reconstruction, and/or weight-based dosing when appropriate to reduce radiation dose to as low as reasonably achievable. Dictated by Margarito Lux MD @ 06/04/2025 3:12:09 PM ----- ADDENDUM ----- Findings were communicated to Dr. Lambert Kaplan at the time of dictation on 06/04/2025. Dictated by Margarito Lux MD @ Jun 04 2025 3:21PM (Electronically Signed) For Patients: As a result of the Cures Act, medical imaging exams and procedure reports are released immediately into your electronic medical record. You may view this report before your referring provider. If you have questions, please contact your health care provider. INDICATION: General abdominal pain, epigastric/right upper quadrant. TECHNIQUE: CT abdomen and pelvis acquired with 99 cc Isovue 370 IV contrast. COMPARISON: None. FINDINGS: Lower chest: Unremarkable. Liver: Normal in size and attenuation. No suspicious masses. Gallbladder and bile ducts: No stones or inflammation. No biliary dilatation. Pancreas: Moderate fatty replacement of pancreas. No adjacent inflammation. Spleen: Normal in size. Too small to characterize hypodense lesion in the upper pole of spleen measuring 9 millimeter, likely cyst or hemangioma. Adrenal glands: Small fat containing right adrenal nodule measuring 1.9 cm, likely adenoma or lipoma Kidneys: Bilateral kidneys are normal in size with symmetric enhancement. Nonobstructing right upper pole nephrolithiasis 4 millimeter. Parapelvic bilateral renal cysts. No hydronephrosis. No ureteric calculi. GI tract: Short-segment small bowel wall thickening in the lower abdomen with moderate adjacent inflammatory changes. There is apposition of two small bowel loops in the lower abdomen. Linear radiodensity is seen traversing from superiorly located inflamed small bowel to inferior small bowel loop. No adjacent free air or loculated/drainable fluid collection. Duodenal diverticulum. Colonic diverticulosis. Previous postsurgical changes of rectocele repair. Vasculature: Abdominal aorta is normal in caliber. Mild atherosclerosis. Lymph nodes: No lymphadenopathy. Peritoneum/Abdominal Wall: No free air or significant free fluid. Pelvis: Remote postsurgical changes of rectocele repair. Bones: Grade 1 anterolisthesis of L4 over L5. Multilevel advanced degenerative changes of the spine. IMPRESSION: 1. Short-segment edematous and inflamed small bowel loops in the anterior lower abdomen with linear radiodensity extending from the superior inflamed bowel loop to serosal surface of the inferiorly located inflamed bowel loop. Overall findings are concerning for foreign body, protruding/perforating a bowel loops with adjacent inflammatory changes. Correlate with any remote history of bowel surgery/suture material involving small bowel loops. Radiographic follow-up is recommended. 2. Nonobstructing right upper pole nephrolithiasis. 3. Colonic diverticulosis. 4. Bilateral parapelvic renal cysts. Please note that all CT scans at this facility use dose modulation, iterative reconstruction, and/or weight-based dosing when appropriate to reduce radiation dose to as low as reasonably achievable. Dictated by Margarito Lux MD @ 06/04/2025 3:12:09 PM Assessment and Plan Assessment and plan (1) Perforated small intestine: Problem comment: -Thin metal wire like foreign body approximately 12 mm long protruding through small intestine (question bristle of the wire brush). -S/p Exploratory laparotomy & removal of foreign body with Small bowel resection. -On zosyn Status: Acute (2) Type 2 diabetes mellitus without complications: Problem comment: -hemoglobin A1c 6.0 in January 2025 -on Mounjaro at home -will start sliding scale insulin at the hospital Status: Chronic (3) ALLISON (obstructive sleep apnea): Problem comment: On CPAP Status: Acute (4) GERD (gastroesophageal reflux disease): Problem comment: On omeprazole 40, will resume Status: Chronic (5) Hyperlipemia: Problem comment: On atorvastatin 10, will resume Status: Acute (6) Obesity, Class III, BMI 40-49.9 (morbid obesity): Status: Chronic Total Time Spent Total Time Spent: Time spent: Today I spent 55 minutes seeing the patient, discussing the patient with ER staff, reviewing Expanse and EPIC notes/diagnostics, discussing the care plan with our care time that includes social work, PT/OT, pharmacy, RT, long term and documenting my impressions and plan in the medical record.
--- NOTE | 2025-06-04 21:30 | P.ANES_ITS ---
Anesthesia Charges Start Date/Time Anesthesia Start Date: 06/04/25 Anesthesia Start Time: 18:30 Stop Date/Time Anesthesia Stop Date: 06/04/25 Anesthesia Stop Time: 21:23 Summary Emergency: COOK HELPER PASTRY Extremes of Age - Over 70 or under 1: COOK HELPER PASTRY Coding CPT Codes CPT Codes: ANESTH SURG LOWER ABDOMEN - 80128 ([id number]) P3 - PATIENT W/SEVERE SYS DISEASE, QZ - COOK HELPER PASTRY SVC W/O BLEACHER OPERATOR BY Additional Codes: Summary - Emergency: COOK HELPER PASTRY ([id number]) Summary - Extremes of Age - Over 70 or under 1: COOK HELPER PASTRY ([id number])
--- NOTE | 2025-06-04 21:30 | W.ANESCHARGE ---
Anesthesia Charges Start Date/Time Anesthesia Start Date: 06/04/25 Anesthesia Start Time: 18:30 Stop Date/Time Anesthesia Stop Date: 06/04/25 Anesthesia Stop Time: 21:23 Summary Emergency: SMALL LOT OPERATOR Extremes of Age - Over 70 or under 1: SMALL LOT OPERATOR Coding CPT Codes CPT Codes: ANESTH SURG LOWER ABDOMEN - 55075 ([id number]) P3 - PATIENT W/SEVERE SYS DISEASE, QZ - SMALL LOT OPERATOR SVC W/O IT INSTRUCTOR BY Additional Codes: Summary - Emergency: SMALL LOT OPERATOR ([id number]) Summary - Extremes of Age - Over 70 or under 1: SMALL LOT OPERATOR ([id number])
[2025-06-04] MEDS: ONDANSETRON 2 MG/ML inj IVP ×2 (22:25→23:04)
--- NOTE | 2025-06-04 22:53 | CRLHL7_ITS ---
For Patients: As a result of the Century Cures Act, medical imaging exams and procedure reports are released immediately into your electronic medical record. You may view this report before your referring provider. If you have questions, please contact your health care provider. Indication: Enteric tube advancement. Technique: Chest 1 view. Comparison: Chest x-ray 06/04/2025. Findings/Impression: Enteric tube with tip and side hole below the diaphragm in the region of the stomach. Minimal patchy bilateral airspace opacification. No pleural effusion or pneumothorax. No acute osseous abnormality. Dictated by Storm Yarbrough MD @ 06/04/2025 11:41:32 PM (Electronically Signed)
[2025-06-05] VITALS (11 sets, daily range): BP systolic 147–163; BP diastolic 78–89; PULSE 65–90; RESP 16–18; TEMP 36.3–37; O2SAT 90–95
[2025-06-05] MEDS: PIPERACILLIN/TAZOBACTAM 3.375 GM in 0.9 % SODIUM CHLORIDE Mini-bag 100 ML IVPB ×5 (01:45→23:51)
[2025-06-05] MEDS: LACTATED RINGERS 1000 ML 1,000 ML 125 ML IV (01:45)
[2025-06-05 07:49] LABS: Hematocrit* 41.2 % (33.0-51.0); Hemoglobin* 13.5 gm/dL (12.0-16.0); Immature Granulocytes Pct Auto 0.6 %; Lymphocytes Absolute Auto 1.00 K/uL (0.90-2.90); Mean Corpuscular HGB Conc 33 gm/dL (32-36); Mean Corpuscular Hemoglobin 31 pg (26-34); Mean Corpuscular Volume 95 fL (80-100); RDW Coefficient of Variation % 13.9 % (11.5-15.5); Red Blood Count* 4.32 m/uL (4.00-5.20); White Blood Count* 19.86 K/uL (4.50-11.00)
[2025-06-05 07:50] LABS: Immature Granulocytes Abs Auto 0.10 K/uL (0.00-0.30); Slide Review Reflex No
[2025-06-05 08:07] LABS: Chloride* 102 mmol/L (96-114); Sodium* 134 mmol/L (135-149)
[2025-06-05 08:08] LABS: Potassium* 4.4 mmol/L (3.6-5.1)
[2025-06-05 08:11] LABS: Anion Gap 8 mEq/L (7-15); Blood Urea Nitrogen* 12 mg/dL (7-30); Calcium* 8.7 mg/dL (8.4-10.6); Carbon Dioxide* 24 mmol/L (20-32); Creatinine* 0.6 mg/dL (0.5-1.5); Est. Creatinine Clearance* 65.82; Estimated Glomerular Filt Rate 90 ml/min; Glucose* 209 mg/dL (60-115)
--- NOTE | 2025-06-05 09:45 | PM.GSPN ---
Subjective Subjective Date Seen: 06/05/25 Interval history: Patient is doing well postoperatively. She has some nausea but no vomiting. She is not passing gas. NG tube with minimal to no output. Whitt catheter is draining urine. Patient does complain of abdominal pain but that is controlled with pain medication. Exam Narrative: Exam Narrative: Abdomen: soft, not distended, tender to palpation in epigastrium and right upper quadrant, surgical incision is covered with clean dry dressing. Const: Vital Signs, click to edit/add: Vital Signs - 24 hr 06/04/25 12:11 06/04/25 13:44 06/04/25 13:45 Temperature 97.1 F L Pulse Rate 67 68 Pulse Rate [Pulse Oximeter] Pulse Rate [Right Pulse Oximeter] 76 Respiratory Rate 18 Blood Pressure Blood Pressure [Le ft Arm] Blood Pressure [Ri ght Upper Arm] 127/78 Pulse Oximetry 96 94 94 Oxygen Delivery Me thod Room Air Oxygen Flow Rate 06/04/25 14:00 06/04/25 14:31 06/04/25 14:46 Temperature Pulse Rate 52 L 74 67 Pulse Rate [Pulse Oximeter] Pulse Rate [Right Pulse Oximeter] Respiratory Rate Blood Pressure 145/68 H 146/68 H Blood Pressure [Le ft Arm] Blood Pressure [Ri ght Upper Arm] Pulse Oximetry 95 94 96 Oxygen Delivery Me thod Oxygen Flow Rate 06/04/25 15:00 06/04/25 21:20 06/04/25 21:25 Temperature 96.6 F L Pulse Rate 53 L 77 73 Pulse Rate [Pulse Oximeter] Pulse Rate [Right Pulse Oximeter] Respiratory Rate 20 20 Blood Pressure 153/69 H 125/62 129/69 Blood Pressure [Le ft Arm] Blood Pressure [Ri ght Upper Arm] Pulse Oximetry 95 95 95 Oxygen Delivery Me thod Nasal Cannula Nasal Cannula Oxygen Flow Rate 5 5 06/04/25 21:30 06/04/25 21:35 06/04/25 21:40 Temperature 96.9 F L Pulse Rate 71 74 76 Pulse Rate [Pulse Oximeter] Pulse Rate [Right Pulse Oximeter] Respiratory Rate 18 16 20 Blood Pressure 131/78 138/73 138/69 Blood Pressure [Le ft Arm] Blood Pressure [Ri ght Upper Arm] Pulse Oximetry 95 93 90 Oxygen Delivery Me thod Nasal Cannula Nasal Cannula Nasal Cannula Oxygen Flow Rate 3 1.5 1 06/04/25 21:45 06/04/25 21:50 06/04/25 22:00 Temperature 96.9 F L 96.9 F L 97.9 F Pulse Rate 77 75 Pulse Rate [Pulse Oximeter] 75 Pulse Rate [Right Pulse Oximeter] Respiratory Rate 22 22 18 Blood Pressure 130/72 134/73 Blood Pressure [Le ft Arm] 144/82 H Blood Pressure [Ri ght Upper Arm] Pulse Oximetry 94 93 95 Oxygen Delivery Me thod Nasal Cannula Nasal Cannula Nasal Cannula Oxygen Flow Rate 1 1 2 06/04/25 22:08 06/04/25 22:08 06/04/25 22:15 Temperature 98 F 97.9 F Pulse Rate Pulse Rate [Pulse Oximeter] 73 76 Pulse Rate [Right Pulse Oximeter] Respiratory Rate 18 18 18 Blood Pressure Blood Pressure [Le ft Arm] 150/82 H 144/82 H Blood Pressure [Ri ght Upper Arm] Pulse Oximetry 94 95 95 Oxygen Delivery Me thod Nasal Cannula Nasal Cannula Nasal Cannula Oxygen Flow Rate 2 2 2 06/04/25 22:15 06/04/25 22:30 06/04/25 22:45 Temperature 97.9 F 97.9 F 98 F Pulse Rate Pulse Rate [Pulse Oximeter] 75 73 77 Pulse Rate [Right Pulse Oximeter] Respiratory Rate 18 18 18 Blood Pressure Blood Pressure [Le ft Arm] 144/82 H 155/84 H 155/80 H Blood Pressure [Ri ght Upper Arm] Pulse Oximetry 96 95 96 Oxygen Delivery Me thod Nasal Cannula Nasal Cannula Nasal Cannula Oxygen Flow Rate 2 2 2 06/04/25 23:00 06/04/25 23:00 06/04/25 23:15 Temperature 98 F Pulse Rate Pulse Rate [Pulse Oximeter] 77 71 Pulse Rate [Right Pulse Oximeter] Respiratory Rate 18 18 18 Blood Pressure Blood Pressure [Le ft Arm] 151/90 H Blood Pressure [Ri ght Upper Arm] Pulse Oximetry 96 95 Oxygen Delivery Me thod Nasal Cannula Nasal Cannula Oxygen Flow Rate 2 2 06/04/25 23:45 06/05/25 00:45 06/05/25 01:45 Temperature 98 F 98 F 97.9 F Pulse Rate Pulse Rate [Pulse Oximeter] 77 70 88 Pulse Rate [Right Pulse Oximeter] Respiratory Rate 18 18 16 Blood Pressure Blood Pressure [Le ft Arm] 157/88 H 151/80 H 163/89 H Blood Pressure [Ri ght Upper Arm] Pulse Oximetry 94 95 95 Oxygen Delivery Me thod Nasal Cannula Nasal Cannula Room Air Oxygen Flow Rate 2 2 06/05/25 02:45 06/05/25 03:45 06/05/25 07:00 Temperature 98.1 F 98 F 97.3 F L Pulse Rate Pulse Rate [Pulse Oximeter] 74 88 90 Pulse Rate [Right Pulse Oximeter] Respiratory Rate 16 18 18 Blood Pressure Blood Pressure [Le ft Arm] 157/88 H 151/80 H 149/81 H Blood Pressure [Ri ght Upper Arm] Pulse Oximetry 94 95 91 Oxygen Delivery Me thod Room Air Room Air Room Air Oxygen Flow Rate Progress Note:A&P Assessment and plan (1) S/P small bowel resection: Status: Acute Plan 84-year-old female s/p exploratory laparotomy and small-bowel resection with foreign body removal POD 1. I discussed with the patient to ambulate several times today. Will remove her Whitt catheter. Will advance her NG tube since NG seems to be just below the diaphragmatic hiatus.
[2025-06-05] MEDS: PANTOPRAZOLE SODIUM 40 MG INJ IVP (10:12)
[2025-06-05] MEDS: ENOXAPARIN 40 MG/0.4 ML INJ SUBCUT (10:16)
[2025-06-05] MEDS: phenoL 1.4 % THROAT SPRAY 1 SPRAY MUCOUS MEM (10:52)
[2025-06-05] MEDS: LACTATED RINGERS 1000 ML 1,000 ML 100 ML IV ×2 (10:52→23:01)
--- NOTE | 2025-06-05 10:59 | CRLHL7_ITS ---
For Patients: As a result of the Century Cures Act, medical imaging exams and procedure reports are released immediately into your electronic medical record. You may view this report before your referring provider. If you have questions, please contact your health care provider. INDICATION: Tube placement. COMPARISON: 04 June 2025. TECHNIQUE : One-view upper abdomen and chest IMPRESSION: Enteric tube tip advanced into the distal stomach. Side port well below GE junction. Dictated by Prabhjot Currie MD @ 06/05/2025 11:55:38 AM (Electronically Signed)
--- NOTE | 2025-06-05 12:02 | PM.IMPN1 ---
Assessment and Plan Assessment and plan (1) S/P small bowel resection: Status: Acute (2) Perforated small intestine: Problem comment: -Thin metal wire like foreign body approximately 12 mm long protruding through small intestine (question bristle of the wire brush). -S/p Exploratory laparotomy & removal of foreign body with Small bowel resection. -On zosyn Status: Acute (3) ALLISON (obstructive sleep apnea): Problem comment: On CPAP Status: Acute (4) Obesity, Class III, BMI 40-49.9 (morbid obesity): Problem comment: On Mounjaro for a few months. Most recent dose increase was a couple months ago. This will be held during her hospital stay and recovery from small-bowel resection. Status: Chronic (5) Type 2 diabetes mellitus without complications: Problem comment: -hemoglobin A1c 6.0 in January 2025 -on Mounjaro at home -will start sliding scale insulin at the hospital Status: Chronic (6) GERD (gastroesophageal reflux disease): Problem comment: On omeprazole 40, will resume Status: Chronic (7) Chronic diarrhea: Problem comment: History of primarily diarrhea with some episodes of constipation over the past few decades. No formal diagnosis of inflammatory bowel disease or colitis. Patient believes this is dietary related. Status: Acute Plan Continue in hospital for postoperative care with small-bowel surgery managed with IV antibiotics, IV fluids, NG suctioning as well as management of other medical problems. Total Time Spent Total Time Spent: Total time spent today is 60 minutes in reviewing outside records and coordination of care and discussing with patient and ongoing management of small-bowel surgery Subjective Date Seen: 06/05/25 Interval history: Admission H&P: Maty Martini is a 84 year old female with past medical history of obesity, HLD, type 2 diabetes and sinus bradycardia and ALLISON on CPAP who presents to the ED with severe abdominal pain and imaging showed 2 short segments of small intestine, inflamed and connected by foreign body that is radiopaque. General surgery team was consulted and took patient to the OR for concern of a perforation of the small bowel. Currently is S/p Exploratory laparotomy & removal of foreign body with Small bowel resection. Hospitalist team is consulted to help with management of chronic medical conditions. Reviewing her primary care physician office visit in January 2025, patient's A1c was 6.0 at that timer. She reports no recent edema and has discontinued the use of torsemide. She has been tolerating Mounjaro well and administers it consistently on the same day each week. She does not monitor her blood glucose levels at home. She has discontinued glipizide since starting Mounjaro. She takes omeprazole daily.. Patient has longstanding concerns about bowel function, colitis, diarrhea, constipation and diet. She reports history of colitis with an episode of bloody diarrhea about 13 years ago. In January [address] Naranjo with the following concerns: The patient is a 70-year-old female with a history of chronic diarrhea. Symptoms have been present for over 20 years. At least once a week, she will have cramps and diarrhea with 4 to 5 loose stools per day. No blood in the stool. Symptoms are sometimes triggered by eating oranges, lettuce, salads, raw vegetables, grapefruit, and corn. Other times, she will have diarrhea when she is under stress. No nighttime diarrhea. No blood in the stool. She had a colonoscopy 1-1/2 years ago. Biopsies were taken for microscopic colitis and there were negative. No family history of celiac disease, ulcerative colitis, or Crohn's disease. She has a son and daughter also with problems with diarrhea. Weight has been stable. No joint pains. No skin rashes. She has had problems with rectal prolapse and may have this repaired surgically in the future. April 2021 she was hospitalized at [place] [address] with bloody diarrhea that was thought to be due to an infectious colitis and resolved relatively quickly. Since then she has continued to have episodes of diarrhea and occasional episodes of constipation as well. No further bleeding. She has been managing her symptoms with avoidance of high fiber foods and use of MiraLax as needed for constipation. July of 2022 she had a colonoscopy showing a 5 mm adenomatous polyp, internal hemorrhoids and sigmoid diverticulosis. 06/04/2025: She was taken to the OR by Dr. Day where she was found to have small-bowel perforation due to a small wire. I discussed this with the patient and her and this is likely due to the wire brush that they use to clean the grill. She has small-bowel resection for that. 06/05/2025: She reports she still having a fair bit of abdominal pain with movement. She has an NG tube in place. No fever. No dyspnea. Exam Narrative: Exam Narrative: She is alert and appears in no obvious distress. NG tube is draining a medium bile-stained fluid. Oropharynx with small airway. Respirations are clear to auscultation. Cardiovascular: S1, S2, regular rate and rhythm. 1/6 systolic murmur. No gallop or rub. Abdomen is soft with mild diffuse tenderness consistent with postoperative status. Extremities with trace edema. She moves all 4 extremities well. No rash. Const: Vital Signs, click to edit/add: Vital Signs - 24 hr 06/04/25 12:11 06/04/25 13:44 06/04/25 13:45 Temperature 97.1 F L Pulse Rate 67 68 Pulse Rate [Pulse Oximeter] Pulse Rate [Right Pulse Oximeter] 76 Respiratory Rate 18 Blood Pressure Blood Pressure [Le ft Arm] Blood Pressure [Ri ght Upper Arm] 127/78 Pulse Oximetry 96 94 94 Oxygen Delivery Me thod Room Air Oxygen Flow Rate 06/04/25 14:00 06/04/25 14:31 06/04/25 14:46 Temperature Pulse Rate 52 L 74 67 Pulse Rate [Pulse Oximeter] Pulse Rate [Right Pulse Oximeter] Respiratory Rate Blood Pressure 145/68 H 146/68 H Blood Pressure [Le ft Arm] Blood Pressure [Ri ght Upper Arm] Pulse Oximetry 95 94 96 Oxygen Delivery Me thod Oxygen Flow Rate 06/04/25 15:00 06/04/25 21:20 06/04/25 21:25 Temperature 96.6 F L Pulse Rate 53 L 77 73 Pulse Rate [Pulse Oximeter] Pulse Rate [Right Pulse Oximeter] Respiratory Rate 20 20 Blood Pressure 153/69 H 125/62 129/69 Blood Pressure [Le ft Arm] Blood Pressure [Ri ght Upper Arm] Pulse Oximetry 95 95 95 Oxygen Delivery Me thod Nasal Cannula Nasal Cannula Oxygen Flow Rate 5 5 06/04/25 21:30 06/04/25 21:35 06/04/25 21:40 Temperature 96.9 F L Pulse Rate 71 74 76 Pulse Rate [Pulse Oximeter] Pulse Rate [Right Pulse Oximeter] Respiratory Rate 18 16 20 Blood Pressure 131/78 138/73 138/69 Blood Pressure [Le ft Arm] Blood Pressure [Ri ght Upper Arm] Pulse Oximetry 95 93 90 Oxygen Delivery Me thod Nasal Cannula Nasal Cannula Nasal Cannula Oxygen Flow Rate 3 1.5 1 06/04/25 21:45 06/04/25 21:50 06/04/25 22:00 Temperature 96.9 F L 96.9 F L 97.9 F Pulse Rate 77 75 Pulse Rate [Pulse Oximeter] 75 Pulse Rate [Right Pulse Oximeter] Respiratory Rate 22 22 18 Blood Pressure 130/72 134/73 Blood Pressure [Le ft Arm] 144/82 H Blood Pressure [Ri ght Upper Arm] Pulse Oximetry 94 93 95 Oxygen Delivery Me thod Nasal Cannula Nasal Cannula Nasal Cannula Oxygen Flow Rate 1 1 2 06/04/25 22:08 06/04/25 22:08 06/04/25 22:15 Temperature 98 F 97.9 F Pulse Rate Pulse Rate [Pulse Oximeter] 73 76 Pulse Rate [Right Pulse Oximeter] Respiratory Rate 18 18 18 Blood Pressure Blood Pressure [Le ft Arm] 150/82 H 144/82 H Blood Pressure [Ri ght Upper Arm] Pulse Oximetry 94 95 95 Oxygen Delivery Me thod Nasal Cannula Nasal Cannula Nasal Cannula Oxygen Flow Rate 2 2 2 06/04/25 22:15 06/04/25 22:30 06/04/25 22:45 Temperature 97.9 F 97.9 F 98 F Pulse Rate Pulse Rate [Pulse Oximeter] 75 73 77 Pulse Rate [Right Pulse Oximeter] Respiratory Rate 18 18 18 Blood Pressure Blood Pressure [Le ft Arm] 144/82 H 155/84 H 155/80 H Blood Pressure [Ri ght Upper Arm] Pulse Oximetry 96 95 96 Oxygen Delivery Me thod Nasal Cannula Nasal Cannula Nasal Cannula Oxygen Flow Rate 2 2 2 06/04/25 23:00 06/04/25 23:00 06/04/25 23:15 Temperature 98 F Pulse Rate Pulse Rate [Pulse Oximeter] 77 71 Pulse Rate [Right Pulse Oximeter] Respiratory Rate 18 18 18 Blood Pressure Blood Pressure [Le ft Arm] 151/90 H Blood Pressure [Ri ght Upper Arm] Pulse Oximetry 96 95 Oxygen Delivery Me thod Nasal Cannula Nasal Cannula Oxygen Flow Rate 2 2 06/04/25 23:45 06/05/25 00:45 06/05/25 01:45 Temperature 98 F 98 F 97.9 F Pulse Rate Pulse Rate [Pulse Oximeter] 77 70 88 Pulse Rate [Right Pulse Oximeter] Respiratory Rate 18 18 16 Blood Pressure Blood Pressure [Le ft Arm] 157/88 H 151/80 H 163/89 H Blood Pressure [Ri ght Upper Arm] Pulse Oximetry 94 95 95 Oxygen Delivery Me thod Nasal Cannula Nasal Cannula Room Air Oxygen Flow Rate 2 2 06/05/25 02:45 06/05/25 03:45 06/05/25 07:00 Temperature 98.1 F 98 F 97.3 F L Pulse Rate Pulse Rate [Pulse Oximeter] 74 88 90 Pulse Rate [Right Pulse Oximeter] Respiratory Rate 16 18 18 Blood Pressure Blood Pressure [Le ft Arm] 157/88 H 151/80 H 149/81 H Blood Pressure [Ri ght Upper Arm] Pulse Oximetry 94 95 91 Oxygen Delivery Me thod Room Air Room Air Room Air Oxygen Flow Rate 06/05/25 07:00 06/05/25 11:36 Temperature 97.6 F Pulse Rate Pulse Rate [Pulse Oximeter] 65 Pulse Rate [Right Pulse Oximeter] Respiratory Rate 18 17 Blood Pressure Blood Pressure [Le ft Arm] 156/88 H Blood Pressure [Ri ght Upper Arm] Pulse Oximetry 91 93 Oxygen Delivery Me thod Room Air Room Air Oxygen Flow Rate Documenting provider has reviewed patient's vital signs: yes Labs Labs: Laboratory Results - last 24 hr 06/04/25 06/04/25 06/04/25 13:10 14:27 14:29 WBC 14.62 H RBC 4.31 Hgb 13.3 Hct 41.2 MCV 96 MCH 31 MCHC 32 RDW Coeff of [place] 14.0 Plt Count 223 Neut % (Auto) 75.3 H Lymph % (Auto) 14.6 L [place] % (Auto) 9.6 Eos % (Auto) 0.3 Baso % (Auto) 0.1 Neut # (Auto) 11.00 H Lymph # (Auto) 2.10 [place] # (Auto) 1.40 H Eos # (Auto) 0.00 Baso # (Auto) 0.00 Abs Immat Gran (auto) 0.00 Imm/Tot Granulo (auto) 0.1 D-Dimer Quant (PE/DVT) 1.55 H Sodium 136 Potassium 4.3 Chloride 102 Carbon Dioxide 29 Anion Gap 5 L BUN 17 Creatinine 0.8 Estimated Creat Clear 62.74 Estimated GFR 74 Glucose 129 H Calcium 9.4 Total Bilirubin 1.8 H Direct Bilirubin 0.2 AST 22 ALT 16 Alkaline Phosphatase 78 C-Reactive Protein 14.7 H Total Protein 7.3 Albumin 4.1 Lipase 20 L Urine Color [place] A Urine Appearance Slightly Cloudy A Urine pH 7.0 Ur Specific [place] 1.010 Urine Protein Negative Urine Glucose (UA) Negative Urine Ketones Negative Urine Blood Trace-intact A Urine Nitrite Negative Urine Bilirubin Negative Urine Urobilinogen 1.0 Ur Leukocyte Esterase Negative Urine RBC 0-2 Urine WBC 0-2 Ur Squamous Epith Cells Few Urine Bacteria None Lab Acknowledgement Test Added 06/05/25 07:00 WBC 19.86 H RBC 4.32 Hgb 13.5 Hct 41.2 MCV 95 MCH 31 MCHC 33 RDW Coeff of [place] 13.9 Plt Count 177 Neut % (Auto) 87.3 H Lymph % (Auto) 5.0 L [place] % (Auto) 7.0 Eos % (Auto) 0.0 Baso % (Auto) 0.1 Neut # (Auto) 17.30 H Lymph # (Auto) 1.00 [place] # (Auto) 1.40 H Eos # (Auto) 0.00 Baso # (Auto) 0.00 Abs Immat Gran (auto) 0.10 Imm/Tot Granulo (auto) 0.6 D-Dimer Quant (PE/DVT) Sodium 134 L Potassium 4.4 Chloride 102 Carbon Dioxide 24 Anion Gap 8 BUN 12 Creatinine 0.6 Estimated Creat Clear 65.82 Estimated GFR 90 Glucose 209 H Calcium 8.7 Total Bilirubin Direct Bilirubin AST ALT Alkaline Phosphatase C-Reactive Protein Total Protein Albumin Lipase Urine Color Urine Appearance Urine pH Ur Specific [place] Urine Protein Urine Glucose (UA) Urine Ketones Urine Blood Urine Nitrite Urine Bilirubin Urine Urobilinogen Ur Leukocyte Esterase Urine RBC Urine WBC Ur Squamous Epith Cells Urine Bacteria Lab Acknowledgement
[2025-06-05] MEDS: ONDANSETRON 2 MG/ML inj IVP (12:58)
--- NOTE | 2025-06-05 19:19 | PC.NURSE ---
Pt is alert and oriented. Midline abdominal incision dressing is c/d/i. Bowel sounds active. NG tube in place, 68cm.? pt c/o abdominal pain, tolerates pain with IV hydromorphone and ice. amaya output 450ml. Amaya removed at 1300, pt voided 50ml, Bladder scan is 3ml at 1900. Pt is 1 assist with walker.
[2025-06-06] VITALS (10 sets, daily range): BP systolic 145–171; BP diastolic 74–110; PULSE 74–92; RESP 16–19; TEMP 36.4–37.1; O2SAT 90–95
[2025-06-06] MEDS: PIPERACILLIN/TAZOBACTAM 3.375 GM in 0.9 % SODIUM CHLORIDE Mini-bag 100 ML IVPB ×3 (05:53→18:34)
[2025-06-06 06:33] LABS: Hematocrit* 38.3 % (33.0-51.0); Hemoglobin* 12.2 gm/dL (12.0-16.0); Immature Granulocytes Pct Auto 0.5 %; Mean Corpuscular HGB Conc 32 gm/dL (32-36); Mean Corpuscular Hemoglobin 31 pg (26-34); Mean Corpuscular Volume 97 fL (80-100); RDW Coefficient of Variation % 13.9 % (11.5-15.5); Red Blood Count* 3.96 m/uL (4.00-5.20); White Blood Count* 16.85 K/uL (4.50-11.00)
[2025-06-06 06:43] LABS: Immature Granulocytes Abs Auto 0.10 K/uL (0.00-0.30); Lymphocytes Absolute Auto 1.70 K/uL (0.90-2.90); Slide Review Reflex No
[2025-06-06 06:44] LABS: Chloride* 99 mmol/L (96-114); Sodium* 134 mmol/L (135-149)
[2025-06-06 06:45] LABS: Potassium* 4.1 mmol/L (3.6-5.1)
[2025-06-06 06:47] LABS: Blood Urea Nitrogen* 14 mg/dL (7-30); Creatinine* 0.8 mg/dL (0.5-1.5); Est. Creatinine Clearance* 63.61; Estimated Glomerular Filt Rate 74 ml/min
[2025-06-06 06:48] LABS: Anion Gap 6 mEq/L (7-15); Calcium* 8.7 mg/dL (8.4-10.6); Carbon Dioxide* 29 mmol/L (20-32); Glucose* 144 mg/dL (60-115)
--- NOTE | 2025-06-06 07:38 | PC.NURSE ---
End of shift [id number]: Pt AxOx3, pleasant, and cooperative with cares. Midline abd incision dressing and lap site remain CDI. Bowel sounds active with no flatus reported. NG tube in place, 68cm, LIS.? Pt reports abdominal pain that is managed well with PRN pain medication, active ice, and repositioning. SBA GB W to the bathroom. Continent of bladder. Call light within reach.
[2025-06-06] MEDS: PANTOPRAZOLE SODIUM 40 MG INJ IVP (08:33)
[2025-06-06] MEDS: LACTATED RINGERS 500 ML 500 ML IV (08:36)
[2025-06-06] MEDS: ENOXAPARIN 40 MG/0.4 ML INJ SUBCUT (10:02)
[2025-06-06] MEDS: LACTATED RINGERS 1000 ML 1,000 ML 125 ML IV ×2 (10:03→16:00)
--- NOTE | 2025-06-06 10:50 | PC.NURSE ---
Patient went for a walk with assistant front end manager she walked 100 ft.
--- NOTE | 2025-06-06 12:05 | PM.GSPN ---
Subjective Subjective Date Seen: 06/06/25 Interval history: Patient is improving. Her abdominal pain is improving. She is not passing gas. She denies vomiting. She ambulated yesterday and today. NG tube with minimal amount of clear output. Exam Narrative: Exam Narrative: Abdomen is soft, not distended, minimal discomfort to palpation in epigastrium but no where else, midline laparotomy incision is with intact andrea with no surrounding erythema. Const: Vital Signs, click to edit/add: Vital Signs - 24 hr 06/05/25 15:00 06/05/25 15:18 06/05/25 20:20 Temperature 98.4 F Pulse Rate [Pulse Oximeter] 66 70 Respiratory Rate 18 18 Blood Pressure [Le ft Arm] 157/79 H 160/87 H Pulse Oximetry 94 94 90 Oxygen Delivery Me thod Room Air Room Air Room Air 06/05/25 23:00 06/06/25 00:05 06/06/25 02:48 Temperature 98.6 F 98.7 F Pulse Rate [Pulse Oximeter] 85 85 Respiratory Rate 18 18 19 Blood Pressure [Le ft Arm] 147/78 H 156/85 H Pulse Oximetry 90 90 94 Oxygen Delivery Me thod Room Air Room Air Room Air 06/06/25 07:00 06/06/25 07:30 06/06/25 07:30 Temperature 98.7 F Pulse Rate [Pulse Oximeter] 82 82 Respiratory Rate 18 18 18 Blood Pressure [Le ft Arm] 145/74 H Pulse Oximetry 91 91 Oxygen Delivery Me thod Room Air Room Air 06/06/25 11:00 Temperature 98.5 F Pulse Rate [Pulse Oximeter] 87 Respiratory Rate 18 Blood Pressure [Le ft Arm] 151/89 H Pulse Oximetry 92 Oxygen Delivery Me thod Room Air Progress Note:A&P Assessment and plan (1) S/P small bowel resection: Status: Acute Plan 84-year-old female s/p exploratory laparotomy and small-bowel resection for foreign body removal POD 3. Patient is recovering well. We are waiting for return of bowel function. Patient's NG tube has been minimal. We may consider removing NG tube tomorrow. Patient's WBC is decreasing. He will continue Zosyn for 7 days prophylactically due to intra-abdominal contamination in the setting of permanent mesh. Patient is on DVT prophylaxis.
[2025-06-06] MEDS: phenoL 1.4 % THROAT SPRAY 1 SPRAY MUCOUS MEM ×3 (15:16→22:13)
--- NOTE | 2025-06-06 16:48 | P.IMPN_ITS ---
Assessment and Plan Assessment and plan (1) S/P small bowel resection: Problem comment: Improving. Still with NG suctioning. Pending antegrade bowel activity. Continue to monitor hydration and provide IV fluids. Status: Acute (2) Perforated small intestine: Problem comment: -Thin metal wire like foreign body approximately 12 mm long protruding through small intestine (question bristle of the wire brush). -S/p Exploratory laparotomy & removal of foreign body with Small bowel resection. -continue Zosyn due to perforation. Status: Acute (3) ALLISON (obstructive sleep apnea): Problem comment: On CPAP. Initiate when NG is out Status: Acute (4) GERD (gastroesophageal reflux disease): Problem comment: Continue PPI Status: Chronic (5) Obesity, Class III, BMI 40-49.9 (morbid obesity): Problem comment: On Mounjaro for a few months. Most recent dose increase was a couple months ago. This will be held during her hospital stay and recovery from small-bowel resection. Status: Chronic (6) Chronic diarrhea: Problem comment: History of primarily diarrhea with some episodes of constipation over the past few decades. No formal diagnosis of inflammatory bowel disease or colitis. Patient believes this is dietary related. Status: Acute (7) Type 2 diabetes mellitus without complications: Problem comment: -hemoglobin A1c 6.0 in January 2025 -on Mounjaro at home -will start sliding scale insulin at the hospital. Blood sugars well controlled. Status: Chronic (8) Hypertension: Problem comment: Patient has had elevated blood pressures in the hospital and also has had elevated blood pressures intermittently prior to this hospitalization. With comorbidities would benefit from aggressive blood pressure control. Continue to assess and possibly initiate antihypertensive therapy Status: Acute Plan Continue in hospital for management of postoperative status, IV fluids, IV antibiotics, diabetes management and blood pressure management. Total Time Spent Total Time Spent: Total time spent today is 30 minutes in coordination of care and discussing with patient and other providers ongoing management of postoperative status and chronic medical problems noted above Subjective Date Seen: 06/06/25 Interval history: Admission H&P: Maty Martini is a 84 year old female with past medical history of obesity, HLD, type 2 diabetes and sinus bradycardia and ALLISON on CPAP who presents to the ED with severe abdominal pain and imaging showed 2 short segments of small intestine, inflamed and connected by foreign body that is radiopaque. General surgery team was consulted and took patient to the OR for concern of a perforation of the small bowel. Currently is S/p Exploratory laparotomy & removal of foreign body with Small bowel resection. Hospitalist team is consulted to help with management of chronic medical conditions. Reviewing her primary care physician office visit in January 2025, patient's A1c was 6.0 at that timer. She reports no recent edema and has discontinued the use of torsemide. She has been tolerating Mounjaro well and administers it consistently on the same day each week. She does not monitor her blood glucose levels at home. She has discontinued glipizide since starting Mounjaro. She takes omeprazole daily.. Patient has longstanding concerns about bowel function, colitis, diarrhea, constipation and diet. She reports history of colitis with an episode of bloody diarrhea about 13 years ago. In January [address] Naranjo with the following concerns: The patient is a 70-year-old female with a history of chronic diarrhea. Symptoms have been present for over 20 years. At least once a week, she will have cramps and diarrhea with 4 to 5 loose stools per day. No blood in the stool. Symptoms are sometimes triggered by eating oranges, lettuce, salads, raw vegetables, grapefruit, and corn. Other times, she will have diarrhea when she is under stress. No nighttime diarrhea. No blood in the stool. She had a colonoscopy 1-1/2 years ago. Biopsies were taken for microscopic colitis and there were negative. No family history of celiac disease, ulcerative colitis, or Crohn's disease. She has a son and daughter also with problems with diarrhea. Weight has been stable. No joint pains. No skin rashes. She has had problems with rectal prolapse and may have this repaired surgically in the future. April 2021 she was hospitalized at [place] [address] with bloody diarrhea that was thought to be due to an infectious colitis and resolved relatively quickly. Since then she has continued to have episodes of diarrhea and occasional episodes of constipation as well. No further bleeding. She has been managing her symptoms with avoidance of high fiber foods and use of MiraLax as needed for constipation. July of 2022 she had a colonoscopy showing a 5 mm adenomatous polyp, internal hemorrhoids and sigmoid diverticulosis. 06/04/2025: She was taken to the OR by Dr. Day where she was found to have small-bowel perforation due to a small wire. I discussed this with the patient and her and this is likely due to the wire brush that they use to clean the grill. She has small-bowel resection for that. 06/05/2025: She reports she still having a fair bit of abdominal pain with movement. She has an NG tube in place. No fever. No dyspnea. 06/06/2025: Patient reports feeling better today. Pain is improved. She has been up walking. He has not yet passed gas but she is urinating. Did feel dehydrated earlier but is receive some additional fluid and is urinating better and less dehydrated. No respiratory problems. No other concerns. Exam Narrative: Exam Narrative: She is alert and appears in no distress. Breathing is unlabored. Cardiovascular: S1, S2, regular rate and rhythm. Abdomen: Minimal bowel sounds. Abdomen is soft she has mild tenderness much improved from yesterday. Incisions are clean and dry. Extremities without significant edema. Const: Vital Signs, click to edit/add: Vital Signs - 24 hr 06/05/25 20:20 06/05/25 23:00 06/06/25 00:05 Temperature 98.4 F 98.6 F Pulse Rate [Pulse Oximeter] 70 85 Respiratory Rate 18 18 18 Blood Pressure [Le ft Arm] 160/87 H 147/78 H Pulse Oximetry 90 90 90 Oxygen Delivery In thod Room Air Room Air Room Air 06/06/25 02:48 06/06/25 07:00 06/06/25 07:30 Temperature 98.7 F 98.7 F Pulse Rate [Pulse Oximeter] 85 82 Respiratory Rate 19 18 18 Blood Pressure [Le ft Arm] 156/85 H 145/74 H Pulse Oximetry 94 91 91 Oxygen Delivery In thod Room Air Room Air Room Air 06/06/25 07:30 06/06/25 11:00 06/06/25 15:00 Temperature 98.5 F Pulse Rate [Pulse Oximeter] 82 87 Respiratory Rate 18 18 18 Blood Pressure [Le ft Arm] 151/89 H Pulse Oximetry 92 92 Oxygen Delivery In thod Room Air Room Air 06/06/25 15:00 06/06/25 15:28 Temperature 97.9 F Pulse Rate [Pulse Oximeter] 80 80 Respiratory Rate 18 18 Blood Pressure [Le ft Arm] 171/95 H Pulse Oximetry 92 [facility] Documenting provider has reviewed patient's vital signs: yes Labs Labs: Laboratory Results - last 24 hr 06/06/25 05:48 WBC 16.85 H RBC 3.96 L Hgb 12.2 Hct 38.3 MCV 97 MCH 31 MCHC 32 RDW Coeff of Octavia 13.9 Plt Count 211 Neut % (Auto) 80.3 H Lymph % (Auto) 10.1 L [place] % (Auto) 8.8 Eos % (Auto) 0.2 Baso % (Auto) 0.1 Neut # (Auto) 13.50 H Lymph # (Auto) 1.70 [place] # (Auto) 1.50 H Eos # (Auto) 0.00 Baso # (Auto) 0.00 Abs Immat Gran (auto) 0.10 Imm/Tot Granulo (auto) 0.5 Sodium 134 L Potassium 4.1 Chloride 99 Carbon Dioxide 29 Anion Gap 6 L BUN 14 Creatinine 0.8 Estimated Creat Clear 63.61 Estimated GFR 74 Glucose 144 H Calcium 8.7 C-Reactive Protein 26.0 H
--- NOTE | 2025-06-06 18:28 | CRLHL7_ITS ---
For Patients: As a result of the Century Cures Act, medical imaging exams and procedure reports are released immediately into your electronic medical record. You may view this report before your referring provider. If you have questions, please contact your health care provider. INDICATION: NG tube placement TECHNIQUE: Chest radiograph 1 view on 2 films COMPARISON: 06/04/2025 FINDINGS: The sensitivity and specificity of the exam are severely limited by the patient`s body habitus. Mediastinum: The mediastinum is normal in appearance. The heart silhouette is normal in size and morphology. Lung: Both lungs are unremarkable in appearance with small lung volumes. Small granulomas are noted in the lower lung zones bilaterally. No sign of pleural effusion seen. No pneumothorax is identified. Bone and Soft tissue: Unremarkable for age. NG tube is present with the tip in the gastric antrum. IMPRESSION: 1. NG tube is present with the tip in the gastric antrum. Dictated by Maynor Adams MD @ 06/06/2025 8:13:23 PM Dictated by: Maynor Adams MD @ 06/06/2025 20:14:06 (Electronically Signed)
--- NOTE | 2025-06-06 19:17 | PC.NURSE ---
End of Shift: Patient pleasant and cooperative, A&O. VSS, afebrile. SpO2 maintained above 90% on RA. Patient reports pain in her abdomen this shift, managed with PRN medication, see MAR. NG has been to LIS this shift with minimal output. Around 1800, advertising writer noticed that the NG tube was at 64, MD aware, chest x-ray ordered to verify placement.?Denies nausea this shift, not passing gas this morning, around 1800 pt reports she passed a small amount of flatus. Bowel sounds active. Dressing to abdomen C/D/I. 1A with walker and gait belt. NPO
[2025-06-07] VITALS (7 sets, daily range): BP systolic 143–190; BP diastolic 77–108; PULSE 69–81; RESP 16–18; TEMP 36.4–37.1; O2SAT 92–95
[2025-06-07] MEDS: PIPERACILLIN/TAZOBACTAM 3.375 GM in 0.9 % SODIUM CHLORIDE Mini-bag 100 ML IVPB ×4 (00:44→17:52)
[2025-06-07 06:27] LABS: Hematocrit* 36.2 % (33.0-51.0); Hemoglobin* 11.9 gm/dL (12.0-16.0); Immature Granulocytes Pct Auto 0.2 %; Lymphocytes Absolute Auto 2.00 K/uL (0.90-2.90); Mean Corpuscular HGB Conc 33 gm/dL (32-36); Mean Corpuscular Hemoglobin 31 pg (26-34); Mean Corpuscular Volume 94 fL (80-100); RDW Coefficient of Variation % 13.5 % (11.5-15.5); Red Blood Count* 3.84 m/uL (4.00-5.20); White Blood Count* 12.04 K/uL (4.50-11.00)
[2025-06-07 06:31] LABS: Immature Granulocytes Abs Auto 0.00 K/uL (0.00-0.30); Slide Review Reflex No
[2025-06-07 06:36] LABS: Chloride* 100 mmol/L (96-114); Potassium* 3.5 mmol/L (3.6-5.1); Sodium* 134 mmol/L (135-149)
[2025-06-07 06:40] LABS: Anion Gap 6 mEq/L (7-15); Blood Urea Nitrogen* 11 mg/dL (7-30); Calcium* 8.8 mg/dL (8.4-10.6); Carbon Dioxide* 28 mmol/L (20-32); Creatinine* 0.7 mg/dL (0.5-1.5); Est. Creatinine Clearance* 62.77; Estimated Glomerular Filt Rate 86 ml/min; Glucose* 122 mg/dL (60-115)
--- NOTE | 2025-06-07 07:04 | PC.NURSE ---
End of shift ([id number]): Pt pleasant, alert and oriented with periods of forgetfulness. ?VSS. Bowel sounds active and pt passing flatus. Sips and chips are tolerated well. NG in right nare at 68. Pt stated some pain, prn provided. Denies nausea. Pt in bed, appears to be resting, call light within reach.
--- NOTE | 2025-06-07 07:26 | PM.GSPN ---
Subjective Subjective Date Seen: 06/07/25 Interval history: Patient is doing well. She started to pass gas. Her abdominal pain is controlled. No nausea, no vomiting. She ambulated yesterday and today in the morning. Exam Narrative: Exam Narrative: Abdomen is soft, not distended, minimally tender to palpation in the right upper quadrant. Midline laparotomy incision with intact steries with no surrounding erythema. Const: Vital Signs, click to edit/add: Vital Signs - 24 hr 06/06/25 07:30 06/06/25 07:30 06/06/25 11:00 Temperature 98.7 F 98.5 F Pulse Rate [Pulse Oximeter] 82 82 87 Respiratory Rate 18 18 18 Blood Pressure [Le ft Arm] 145/74 H 151/89 H Pulse Oximetry 91 92 Oxygen Delivery Me thod Room Air Room Air 06/06/25 15:00 06/06/25 15:00 06/06/25 15:28 Temperature 97.9 F Pulse Rate [Pulse Oximeter] 80 80 Respiratory Rate 18 18 18 Blood Pressure [Le ft Arm] 171/95 H Pulse Oximetry 92 92 Oxygen Delivery Me thod Room Air Room Air 06/06/25 19:00 06/06/25 23:00 06/06/25 23:00 Temperature 98.3 F Pulse Rate [Pulse Oximeter] 74 74 Respiratory Rate 18 16 Blood Pressure [Le ft Arm] 155/88 H Pulse Oximetry 92 95 Oxygen Delivery Ok thod Room Air Room Air 06/06/25 23:45 06/07/25 03:00 Temperature 97.6 F 97.8 F Pulse Rate [Pulse Oximeter] 92 80 Respiratory Rate 16 16 Blood Pressure [Le ft Arm] 171/110 H 190/108 H Pulse Oximetry 90 93 Oxygen Delivery Me thod Room Air Room Air Progress Note:A&P Assessment and plan (1) S/P small bowel resection: Status: Acute Plan 84-year-old female s/p exploratory laparotomy and small-bowel resection with foreign body removal POD 4. Patient has return of bowel function. Will remove her NG tube. Will advance her to sips of clears. Patient will continue to ambulate. We should transition her to p.o. pain medications.
[2025-06-07] MEDS: PANTOPRAZOLE SODIUM 40 MG INJ IVP (08:44)
[2025-06-07] MEDS: SODIUM CHLORIDE 0.9 % (FLUSH) 10 ML SYRINGE 5 ML IVF (08:45)
[2025-06-07] MEDS: LACTATED RINGERS 1000 ML 1,000 ML 125 ML IV (08:45)
[2025-06-07] MEDS: ENOXAPARIN 40 MG/0.4 ML INJ SUBCUT (10:08)
--- NOTE | 2025-06-07 12:30 | P.IMPN_ITS ---
Assessment and Plan Assessment and plan (1) S/P small bowel resection: Problem comment: Improving. Still with NG suctioning. Pending antegrade bowel activity. Continue to monitor hydration and provide IV fluids. Status: Acute (2) Hypertension: Problem comment: Patient has had elevated blood pressures in the hospital and also has had elevated blood pressures intermittently prior to this hospitalization. With comorbidities would benefit from aggressive blood pressure control. Continue to assess and possibly initiate antihypertensive therapy Status: Acute (3) Chronic diarrhea: Problem comment: History of primarily diarrhea with some episodes of constipation over the past few decades. No formal diagnosis of inflammatory bowel disease or colitis. Patient believes this is dietary related. Status: Acute (4) ALLISON (obstructive sleep apnea): Problem comment: On CPAP. Initiate when NG is out Status: Acute Plan Continue in hospital for IV fluids and IV antibiotics and postoperative care. Subjective Date Seen: 06/07/25 Interval history: Admission H&P: Maty Martini is a 84 year old female with past medical history of obesity, HLD, type 2 diabetes and sinus bradycardia and ALLISON on CPAP who presents to the ED with severe abdominal pain and imaging showed 2 short segments of small intestine, inflamed and connected by foreign body that is radiopaque. General surgery team was consulted and took patient to the OR for concern of a perforation of the small bowel. Currently is S/p Exploratory laparotomy & removal of foreign body with Small bowel resection. Hospitalist team is consulted to help with management of chronic medical conditions. Reviewing her primary care physician office visit in January 2025, patient's A1c was 6.0 at that timer. She reports no recent edema and has discontinued the use of torsemide. She has been tolerating Mounjaro well and administers it consistently on the same day each week. She does not monitor her blood glucose levels at home. She has discontinued glipizide since starting Mounjaro. She takes omeprazole daily.. Patient has longstanding concerns about bowel function, colitis, diarrhea, constipation and diet. She reports history of colitis with an episode of bloody diarrhea about 13 years ago. In January [address] Naranjo with the following concerns: The patient is a 70-year-old female with a history of chronic diarrhea. Symptoms have been present for over 20 years. At least once a week, she will have cramps and diarrhea with 4 to 5 loose stools per day. No blood in the stool. Symptoms are sometimes triggered by eating oranges, lettuce, salads, raw vegetables, grapefruit, and corn. Other times, she will have diarrhea when she is under stress. No nighttime diarrhea. No blood in the stool. She had a colonoscopy 1-1/2 years ago. Biopsies were taken for microscopic colitis and there were negative. No family history of celiac disease, ulcerative colitis, or Crohn's disease. She has a son and daughter also with problems with diarrhea. Weight has been stable. No joint pains. No skin rashes. She has had problems with rectal prolapse and may have this repaired surgically in the future. April 2021 she was hospitalized at [place] [id number] with bloody diarrhea that was thought to be due to an infectious colitis and resolved relatively quickly. Since then she has continued to have episodes of diarrhea and occasional episodes of constipation as well. No further bleeding. She has been managing her symptoms with avoidance of high fiber foods and use of MiraLax as needed for constipation. July of 2022 she had a colonoscopy showing a 5 mm adenomatous polyp, internal hemorrhoids and sigmoid diverticulosis. 06/04/2025: She was taken to the OR by Dr. Day where she was found to have small-bowel perforation due to a small wire. I discussed this with the patient and her and this is likely due to the wire brush that they use to clean the grill. She has small-bowel resection for that. 06/05/2025: She reports she still having a fair bit of abdominal pain with movement. She has an NG tube in place. No fever. No dyspnea. 06/06/2025: Patient reports feeling better today. Pain is improved. She has been up walking. He has not yet passed gas but she is urinating. Did feel dehydrated earlier but is receive some additional fluid and is urinating better and less dehydrated. No respiratory problems. No other concerns. 06/07/2025: Patient reports continued to improve. She has been passing gas. NG was taken out this morning. She is tolerating clear liquids. Pain is much better. She has been ambulating well. No new concerns. Exam Narrative: Exam Narrative: She is alert appears in no distress. Mood and affect are bright. Respirations are unlabored. Abdomen with active bowel sounds. Mild tenderness. Incision sites are clean and dry without significant erythema. No drainage. Const: Vital Signs, click to edit/add: Vital Signs - 24 hr 06/06/25 15:00 06/06/25 15:00 06/06/25 15:28 Temperature 97.9 F Pulse Rate [Pulse Oximeter] 80 80 Respiratory Rate 18 18 18 Blood Pressure [Le ft Arm] 171/95 H Pulse Oximetry 92 92 Oxygen Delivery Me thod Room Air Room Air 06/06/25 19:00 06/06/25 23:00 06/06/25 23:00 Temperature 98.3 F Pulse Rate [Pulse Oximeter] 74 74 Respiratory Rate 18 16 Blood Pressure [Le ft Arm] 155/88 H Pulse Oximetry 92 95 Oxygen Delivery Me thod Room Air Room Air 06/06/25 23:45 06/07/25 03:00 06/07/25 07:00 Temperature 97.6 F 97.8 F Pulse Rate [Pulse Oximeter] 92 80 Respiratory Rate 16 16 18 Blood Pressure [Le ft Arm] 171/110 H 190/108 H Pulse Oximetry 90 93 92 Oxygen Delivery Me thod Room Air Room Air Room Air 06/07/25 07:00 06/07/25 07:35 06/07/25 12:08 Temperature 98.8 F 97.6 F Pulse Rate [Pulse Oximeter] 80 80 81 Respiratory Rate 18 18 16 Blood Pressure [Le ft Arm] 160/84 H 152/91 H Pulse Oximetry 92 95 Oxygen Delivery Me thod Room Air Room Air Documenting provider has reviewed patient's vital signs: yes Labs Labs: Laboratory Results - last 24 hr 06/07/25 06:05 WBC 12.04 H RBC 3.84 L Hgb 11.9 L Hct 36.2 MCV 94 MCH 31 MCHC 33 RDW Coeff of Octavia 13.5 Plt Count 230 Neut % (Auto) 72.1 H Lymph % (Auto) 16.6 L [place] % (Auto) 10.1 Eos % (Auto) 0.8 Baso % (Auto) 0.2 Neut # (Auto) 8.70 H Lymph # (Auto) 2.00 [place] # (Auto) 1.20 H Eos # (Auto) 0.10 Baso # (Auto) 0.00 Abs Immat Gran (auto) 0.00 Imm/Tot Granulo (auto) 0.2 Sodium 134 L Potassium 3.5 L Chloride 100 Carbon Dioxide 28 Anion Gap 6 L BUN 11 Creatinine 0.7 Estimated Creat Clear 62.77 Estimated GFR 86 Glucose 122 H Calcium 8.8 C-Reactive Protein 21.3 H
[2025-06-07] MEDS: HYDROCODONE-ACETAMIN 5-325 MG 1 TAB PO (15:13)
[2025-06-07] MEDS: LACTATED RINGERS 1000 ML 1,000 ML 50 ML IV (15:19)
--- NOTE | 2025-06-07 19:38 | PC.NURSE ---
End of Shift: Patient pleasant and cooperative, A&O. VSS, afebrile. NG removed this shift with tip intact. Patient reports pain in her abdomen this shift, managed with PRN medication, see MAR. Patient denies nausea this shift. Reports passing gas, bowel sounds active, she had a moderate size formed BM this shift. Tolerating clear liquids. 1A with walker and gait belt.
[2025-06-08] VITALS (8 sets, daily range): BP systolic 135–157; BP diastolic 56–82; PULSE 60–73; RESP 14–20; TEMP 36.2–36.7; O2SAT 92–95
[2025-06-08] MEDS: PIPERACILLIN/TAZOBACTAM 3.375 GM in 0.9 % SODIUM CHLORIDE Mini-bag 100 ML IVPB ×3 (00:03→11:43)
[2025-06-08] MEDS: SODIUM CHLORIDE 0.9 % (FLUSH) 10 ML SYRINGE 5 ML IVF ×3 (00:04→21:40)
[2025-06-08 06:49] LABS: Hematocrit* 36.0 % (33.0-51.0); Hemoglobin* 11.8 gm/dL (12.0-16.0); Immature Granulocytes Abs Auto 0.03 K/uL (0.00-0.30); Immature Granulocytes Pct Auto 0.3 %; Lymphocytes Absolute Auto 2.14 K/uL (0.90-2.90); Mean Corpuscular HGB Conc 33 gm/dL (32-36); Mean Corpuscular Hemoglobin 31 pg (26-34); Mean Corpuscular Volume 94 fL (80-100); RDW Coefficient of Variation % 13.5 % (11.5-15.5); Red Blood Count* 3.82 m/uL (4.00-5.20); White Blood Count* 8.82 K/uL (4.50-11.00)
[2025-06-08 06:51] LABS: Slide Review Reflex No
--- NOTE | 2025-06-08 07:01 | PC.NURSE ---
End of shift: Pt pleasant, alert and oriented.?VSS. Bowel sounds active and pt passing flatus. Pt had several loose stools throughout the shift. Clears are tolerated well. Midline and lap site open to air, C/D/I. ABD binder in place. Denies nausea. Home CPAP brought in, tolerated well. Pt in bed, appears to be resting, call light within reach.?
[2025-06-08 07:04] LABS: Chloride* 102 mmol/L (96-114); Potassium* 3.1 mmol/L (3.6-5.1); Sodium* 136 mmol/L (135-149)
[2025-06-08 07:07] LABS: Anion Gap 6 mEq/L (7-15); Blood Urea Nitrogen* 11 mg/dL (7-30); Calcium* 8.6 mg/dL (8.4-10.6); Carbon Dioxide* 28 mmol/L (20-32); Creatinine* 0.7 mg/dL (0.5-1.5); Est. Creatinine Clearance* 62.65; Estimated Glomerular Filt Rate 86 ml/min; Glucose* 118 mg/dL (60-115)
[2025-06-08] MEDS: PANTOPRAZOLE SODIUM 40 MG INJ IVP (08:32)
[2025-06-08] MEDS: LACTATED RINGERS 1000 ML 1,000 ML 50 ML IV (09:58)
[2025-06-08] MEDS: ENOXAPARIN 40 MG/0.4 ML INJ SUBCUT (09:58)
[2025-06-08] MEDS: ACETAMINOPHEN 325 MG TABLET 650 MG PO (10:53)
--- NOTE | 2025-06-08 12:13 | PM.GSPN ---
Subjective Subjective Date Seen: 06/08/25 Interval history: Patient is doing great this morning. She is tolerating clear liquids without difficulty. Is feeling hungry for regular food. Continues to pass gas. Has had several small bowel out of liquidy stool today. Pain is well controlled. No other concerns. Exam Narrative: Exam Narrative: General: Alert and oriented, no acute distress Abdomen: Soft, nontender to palpation, left upper quadrant Steri-Strips in place clean/dry/intact. Midline incision with andrea in place. No surrounding erythema or induration or concern for infection. Const: Vital Signs, click to edit/add: Vital Signs - 24 hr 06/07/25 15:00 06/07/25 15:00 06/07/25 15:00 Temperature 97.9 F Pulse Rate [Pulse Oximeter] 69 69 Respiratory Rate 18 18 18 Blood Pressure [Le ft Arm] 152/86 H Pulse Oximetry 92 92 Oxygen Delivery Me thod Room Air Room Air 06/07/25 19:44 06/07/25 23:00 06/07/25 23:00 Temperature 97.6 F Pulse Rate [Pulse Oximeter] 69 70 Respiratory Rate 16 16 16 Blood Pressure [Le ft Arm] 143/77 H Pulse Oximetry 92 92 Oxygen Delivery Me thod Room Air Room Air 06/08/25 00:05 06/08/25 03:29 06/08/25 07:57 Temperature 97.2 F L 98.1 F Pulse Rate [Pulse Oximeter] 70 60 60 Respiratory Rate 16 16 Blood Pressure [Le ft Arm] 135/56 L 155/81 H Pulse Oximetry 92 92 Oxygen Delivery Me thod Room Air CPAP 06/08/25 07:57 06/08/25 08:04 06/08/25 11:00 Temperature 98.1 F 97.6 F Pulse Rate [Pulse Oximeter] 60 73 Respiratory Rate 20 20 18 Blood Pressure [Le ft Arm] 147/81 H 135/76 Pulse Oximetry 94 94 94 Oxygen Delivery Me thod Room Air Room Air Room Air Labs/Imaging Labs Labs: Normalization of WBC with no leukocytosis. CRP is trending down (14 0.5) Imaging Imaging: No new imaging Progress Note:A&P Assessment and plan (1) S/P small bowel resection: Status: Acute Plan 84-year-old female s/p exploratory laparotomy and small-bowel resection with foreign body removal POD 5. Patient with return of bowel function and tolerating clear liquids. Will advance diet as tolerated. Plan to continue antibiotics to complete a 10 day course given contamination noted intraoperatively. I did transition her from IV Zosyn to oral Augmentin. Anticipate discharge likely tomorrow.
[2025-06-08] MEDS: POTASSIUM BICARB 25 MEQ EFFERVESCENT TAB PO ×3 (12:50→16:41)
--- NOTE | 2025-06-08 13:04 | P.IMPN_ITS ---
Assessment and Plan Assessment and plan (1) S/P small bowel resection: Problem comment: Improving. NG tube is out. Tolerating clear liquids. Advance diet. Having diarrhea. Status: Acute (2) Perforated small intestine: Problem comment: -Thin metal wire like foreign body approximately 12 mm long protruding through small intestine (question bristle of the wire brush). -S/p Exploratory laparotomy & removal of foreign body with Small bowel resection. -continue Zosyn due to perforation. Status: Acute (3) Chronic diarrhea: Problem comment: History of primarily diarrhea with some episodes of constipation over the past few decades. No formal diagnosis of inflammatory bowel disease or colitis. Patient believes this is dietary related. Now as small-bowel obstruction is resolving she is having diarrhea. This is not unusual. Will continue to monitor. Status: Acute (4) ALLISON (obstructive sleep apnea): Problem comment: On CPAP. Initiate when NG is out Status: Acute (5) Hypertension: Problem comment: Patient has had elevated blood pressures in the hospital and also has had elevated blood pressures intermittently prior to this hospitalization. With comorbidities would benefit from aggressive blood pressure control. Continue to assess and possibly initiate antihypertensive therapy. Consider REYNA-inhibitor at discharge for treatment of hypertension with diabetes. Status: Acute (6) Acute hypokalemia: Problem comment: Likely due to poor oral intake. Oral replacement and monitor. Consider REYNA- inhibitor at discharge for hypertension with diabetes Status: Acute Plan Continue in hospital for management of postop small-bowel obstruction and multiple comorbidities as noted above. Advancing diet. Possible discharge to home tomorrow. Total Time Spent Total Time Spent: Total time spent today is 40 minutes in coordination of care and discussion with patient and other providers management of small bowel obstruction and other medical problems. Subjective Date Seen: 06/08/25 Interval history: Admission H&P: Maty Martini is a 84 year old female with past medical history of obesity, HLD, type 2 diabetes and sinus bradycardia and ALLISON on CPAP who presents to the ED with severe abdominal pain and imaging showed 2 short segments of small intestine, inflamed and connected by foreign body that is radiopaque. General surgery team was consulted and took patient to the OR for concern of a perforation of the small bowel. Currently is S/p Exploratory laparotomy & removal of foreign body with Small bowel resection. Hospitalist jennifer harden is consulted to help with management of chronic medical conditions. Reviewing her primary care physician office visit in January 2025, patient's A1c was 6.0 at that timer. She reports no recent edema and has discontinued the use of torsemide. She has been tolerating Mounjaro well and administers it consistently on the same day each week. She does not monitor her blood glucose levels at h ome. She has discontinued glipizide since starting Mounjaro. She takes omeprazole daily.. Patient has longstanding concerns about bowel function, colitis, diarrhea, constipation and diet. She reports history of colitis with an episode of bloody diarrhea about 13 years ago. In January [address] Naranjo with the following concerns: The patient is a 70-year-old female with a history of chronic diarrhea. Symptoms have been present for over 20 years. At least once a week, she will have cramps and diarrhea with 4 to 5 loose stools per day. No blood in the stool. Symptoms are sometimes triggered by eating oranges, lettuce, salads, raw vegetables, grapefruit, and corn. Other times, she will have diarrhea when she is under stress. No nighttime diarrhea. No blood in the stool. She had a colonoscopy 1-1/2 years ago. Biopsies were taken for microscopic colitis and there were negative. No family history of celiac disease, ulcerative colitis, or Crohn's disease. She has a son and daughter also with problems with diarrhea. Weight has been stable. No joint pains. No skin rashes. She has had problems with rectal prolapse and may have this repaired surgically in the future. April 2021 she was hospitalized at [place] [id number] with bloody diarrhea that was thought to be due to an infectious colitis and resolved relatively quickly. Since then she has continued to have episodes of diarrhea and occasional episodes of constipation as well. No further bleeding. She has been managing her symptoms with avoidance of high fiber foods and use of MiraLax as needed for constipation. July of 2022 she had a colonoscopy showing a 5 mm adenomatous polyp, internal hemorrhoids and sigmoid diverticulosis. 06/04/2025: She was taken to the OR by Dr. aDy where she was found to have small-bowel perforation due to a small wire. I discussed this with the patient and her and this is likely due to the wire brush that they use to clean the grill. She has small-bowel resection for that. 06/05/2025: She reports she still having a fair bit of abdominal pain with movement. She has an NG tube in place. No fever. No dyspnea. 06/06/2025: Patient reports feeling better today. Pain is improved. She has been up walking. He has not yet passed gas but she is urinating. Did feel dehydrated earlier but is receive some additional fluid and is urinating better and less dehydrated. No respiratory problems. No other concerns. 06/07/2025: Patient reports continued to improve. She has been passing gas. NG was taken out this morning. She is tolerating clear liquids. Pain is much better. She has been ambulating well. No new concerns. 06/08/2025: Patient reports that she has developed diarrhea. Multiple episodes of watery green diarrhea. No fever or or new abdominal pain. If anything her abdominal pain is better. She has been up walking in the [place]. Tolerating clear liquids very well. Exam Narrative: Exam Narrative: She is alert and appears in no distress. Speech is normal. Respirations are clear to auscultation. Cardiovascular: S1, S2, regular rate and rhythm. Abdomen is soft mild midline tenderness over her incision consistent with her postoperative status. Bowel sounds are present. Lower extremities with 1 to 2+ edema bilaterally. Const: Vital Signs, click to edit/add: Vital Signs - 24 hr 06/07/25 15:00 06/07/25 15:00 06/07/25 15:00 Temperature 97.9 F Pulse Rate [Pulse Oximeter] 69 69 Respiratory Rate 18 18 18 Blood Pressure [Le ft Arm] 152/86 H Pulse Oximetry 92 92 Oxygen Delivery Me thod Room Air Room Air 06/07/25 19:44 06/07/25 23:00 06/07/25 23:00 Temperature 97.6 F Pulse Rate [Pulse Oximeter] 69 70 Respiratory Rate 16 16 16 Blood Pressure [Le ft Arm] 143/77 H Pulse Oximetry 92 92 Oxygen Delivery Me thod Room Air Room Air 06/08/25 00:05 06/08/25 03:29 06/08/25 07:57 Temperature 97.2 F L 98.1 F Pulse Rate [Pulse Oximeter] 70 60 60 Respiratory Rate 16 16 Blood Pressure [Le ft Arm] 135/56 L 155/81 H Pulse Oximetry 92 92 Oxygen Delivery Me thod Room Air CPAP 06/08/25 07:57 06/08/25 08:04 06/08/25 11:00 Temperature 98.1 F 97.6 F Pulse Rate [Pulse Oximeter] 60 73 Respiratory Rate 20 20 18 Blood Pressure [Le ft Arm] 147/81 H 135/76 Pulse Oximetry 94 94 94 Oxygen Delivery Me thod Room Air Room Air Room Air Documenting provider has reviewed patient's vital signs: yes Labs Labs: Laboratory Results - last 24 hr 06/08/25 06:23 WBC 8.82 RBC 3.82 L Hgb 11.8 L Hct 36.0 MCV 94 MCH 31 MCHC 33 RDW Coeff of Octavia 13.5 Plt Count 251 Neut % (Auto) 60.8 Lymph % (Auto) 24.3 [place] % (Auto) 12.4 H Eos % (Auto) 1.9 Baso % (Auto) 0.3 Neut # (Auto) 5.36 Lymph # (Auto) 2.14 [place] # (Auto) 1.10 H Eos # (Auto) 0.17 Baso # (Auto) 0.03 Abs Immat Gran (auto) 0.03 Imm/Tot Granulo (auto) 0.3 Sodium 136 Potassium 3.1 L Chloride 102 Carbon Dioxide 28 Anion Gap 6 L BUN 11 Creatinine 0.7 Estimated Creat Clear 62.65 Estimated GFR 86 Glucose 118 H Calcium 8.6 C-Reactive Protein 14.5 H
--- NOTE | 2025-06-08 17:16 | PC.NURSE ---
Shift Summary: Patient pleasant and cooperative. Up independently in room. Vitals stable and WNL. Abdominal binder in place, andrea appear clean and intact. Patient denies pain, states its more like soreness, given acetaminophen x1 with relief. Advancing diet as tolerated today, has tolerated full liquid well, denied pain/nausea with meals. Continues to have loose BM.
[2025-06-09 00:04] VITALS: BP 152/97; PULSE 68; RESP 14; TEMP 36.4; O2SAT 66
[2025-06-09 03:42] VITALS: BP 158/90; PULSE 61; RESP 16; TEMP 36.4; O2SAT 94
[2025-06-09 06:41] LABS: Hematocrit* 38.1 % (33.0-51.0); Hemoglobin* 12.6 gm/dL (12.0-16.0); Immature Granulocytes Abs Auto 0.02 K/uL (0.00-0.30); Immature Granulocytes Pct Auto 0.2 %; Lymphocytes Absolute Auto 2.84 K/uL (0.90-2.90); Mean Corpuscular HGB Conc 33 gm/dL (32-36); Mean Corpuscular Hemoglobin 31 pg (26-34); Mean Corpuscular Volume 93 fL (80-100); RDW Coefficient of Variation % 13.4 % (11.5-15.5); Red Blood Count* 4.08 m/uL (4.00-5.20); White Blood Count* 9.48 K/uL (4.50-11.00)
[2025-06-09] MEDS: phenoL 1.4 % THROAT SPRAY 1 SPRAY MUCOUS MEM (06:45)
[2025-06-09 06:49] LABS: Slide Review Reflex No
[2025-06-09 06:54] LABS: Chloride* 105 mmol/L (96-114); Potassium* 3.8 mmol/L (3.6-5.1); Sodium* 138 mmol/L (135-149)
[2025-06-09 06:57] LABS: Anion Gap 7 mEq/L (7-15); Blood Urea Nitrogen* 7 mg/dL (7-30); Carbon Dioxide* 26 mmol/L (20-32); Creatinine* 0.7 mg/dL (0.5-1.5); Est. Creatinine Clearance* 61.81; Estimated Glomerular Filt Rate 86 ml/min
[2025-06-09 06:58] LABS: Calcium* 9.4 mg/dL (8.4-10.6); Glucose* 126 mg/dL (60-115)
[2025-06-09 07:00] VITALS: BP 163/92; PULSE 61; PULSE 64; RESP 16; TEMP 36.8; O2SAT 94
--- NOTE | 2025-06-09 07:03 | PC.NURSE ---
End of shift: Pt pleasant, alert and oriented.?VSS. Bowel sounds active and pt passing flatus. Diet is advanced as tolerated, tolerated well. Midline and lap site open to air; C/D/I. ABD binder in place. Denies nausea. Home CPAP used, tolerated well. Independent. Pt in bed, appears to be resting, call light within reach.??
[2025-06-09] MEDS: ACETAMINOPHEN 325 MG TABLET 650 MG PO (07:46)
[2025-06-09 11:00] VITALS: BP 154/99; PULSE 62; RESP 18; O2SAT 94
--- NOTE | 2025-06-09 11:53 | PM.DS1 ---
DS: Providers Provider Date Seen: 06/09/25 Date of admission: 06/04/25 21:18 Primary care physician: Genie Cruz PA-C Admitting Clinician: Alyssa Day MD Attending Physician on discharge: Alyssa Day MD DS: Summary Hospital Course Hospital Course: Patient presented to the emergency department with severe abdominal pain. Workup was obtained with CT scan showing small bowel inflammation and radiopaque foreign body concerning for perforation. She was taken to the operating room for exploratory laparotomy with small-bowel resection. Postoperatively her NG tube was able to be removed. She did have return of bowel function. She continued on IV antibiotics until she had normalization of her WBC and greater than 24 hours of being afebrile. She was discharged with a course of oral antibiotics to complete 10 days. At the time of discharge patient was tolerating a regular diet. Having regular bowel movements and ambulating without difficulty. Her pain was well controlled with oral medication. Time Spent with Patient Time attestation: Total time spent providing and/or coordinating discharge services: Exam Narrative: Exam Narrative: General: Alert and oriented, no acute distress Abdomen: Soft, nontender and nondistended. Midline incision with andrea in place clean/dry/intact. Left upper quadrant laparotomy incision with Steri-Strips in place. Const: Vital Signs, click to edit/add: Vital Signs - 24 hr 06/08/25 15:00 06/08/25 15:00 06/08/25 15:00 Temperature 97.4 F L Pulse Rate [Pulse Oximeter] 68 68 Respiratory Rate 18 18 Blood Pressure [Le ft Arm] 139/82 Blood Pressure [Ri ght Arm] Pulse Oximetry 94 94 Oxygen Delivery Me thod Room Air Room Air 06/08/25 20:18 06/08/25 23:00 06/08/25 23:00 Temperature 97.4 F L Pulse Rate [Pulse Oximeter] 72 68 Respiratory Rate 16 14 Blood Pressure [Le ft Arm] 157/81 H Blood Pressure [Ri ght Arm] Pulse Oximetry 95 92 Oxygen Delivery Me thod Room Air Room Air 06/09/25 00:04 06/09/25 03:42 06/09/25 07:00 Temperature 97.6 F 97.6 F Pulse Rate [Pulse Oximeter] 68 61 61 Respiratory Rate 14 16 16 Blood Pressure [Le ft Arm] 152/97 H 158/90 H Blood Pressure [Ri ght Arm] Pulse Oximetry 66 L 94 Oxygen Delivery Me thod Room Air 06/09/25 07:00 06/09/25 11:00 Temperature 98.2 F Pulse Rate [Pulse Oximeter] 64 62 Respiratory Rate 16 18 Blood Pressure [Le ft Arm] Blood Pressure [Ri ght Arm] 163/92 H 154/99 H Pulse Oximetry 94 94 Oxygen Delivery Me thod Room Air Room Air DS: Data Data Completed and Pending Labs on day of discharge: Labs from last 24 hours 06/09/25 06:35 WBC 9.48 RBC 4.08 Hgb 12.6 Hct 38.1 MCV 93 MCH 31 MCHC 33 RDW Coeff of Octavia 13.4 Plt Count 292 Neut % (Auto) 57.1 Lymph % (Auto) 30.0 [place] % (Auto) 10.2 Eos % (Auto) 2.3 Baso % (Auto) 0.2 Neut # (Auto) 5.41 Lymph # (Auto) 2.84 [place] # (Auto) 1.00 H Eos # (Auto) 0.22 Baso # (Auto) 0.02 Abs Immat Gran (auto) 0.02 Imm/Tot Granulo (auto) 0.2 Sodium 138 Potassium 3.8 Chloride 105 Carbon Dioxide 26 Anion Gap 7 BUN 7 Creatinine 0.7 Estimated Creat Clear 61.81 Estimated GFR 86 Glucose 126 H Calcium 9.4 Discharge Plan Discharge Disposition: Home, Self-Care Date of Admission: 06/04/25 21:18 Attending Provider on Discharge: Xenia Burns Primary Care Provider: Genie Cruz Condition: Stable Anticipated Discharge Date/Time: 06/09/25 12:00 Discharge Medications: New hydrocodone-acetaminophen 5-325 mg tablet 1 tab PO Q6H PRN (Reason: pain) Qty: 5 0RF amoxicillin-pot clavulanate 875-125 mg tablet 1 tab PO BID 4 Days Qty: 8 0RF Continued omega-3 fatty acids-fish oil [Fish Oil] 360-1,200 mg capsule 2 cap PO QDAY omeprazole 40 mg capsule,delayed release(DR/EC) 40 mg PO DAILY Patient Comments: TAKE ONE CAPSULE BY MOUTH ONCE DAILY BEFORE A MEAL multivitamin Tablet 1 tab PO DAILY acetaminophen 500 mg capsule 500 - 1,000 mg PO Q6H MDD 4000mg per day PRN (Reason: pain) Qty: 100 0RF atorvastatin 10 mg tablet 10 mg PO QPM Mounjaro 7.5 mg/0.5 mL pen injector 7.5 mg subcut Q7D glucosamine-chondroitin 500-400 mg capsule 1 cap PO TID Rx Instructions: Take 1 capsule by mouth 3 times daily. Culturelle 10 billion cell capsule 1 cap PO DAILY polyethylene glycol 3350 [ClearLax] 17 gram/dose powder 17 g PO DAILY PRN calcium carbonate [Calcium 600] 600 mg calcium (1,500 mg) tablet 1,200 mg PO DAILY cholecalciferol (vitamin D3) 25 mcg (1,000 unit) tablet 1,000 unit PO DAILY Rx Instructions: Take 1 tablet by mouth once daily. Discharge Orders: Discharge Order (Routine); Ordered 06/09/25 Ordered By: Anson Zurita Patient Education: [facility]+C Laparoscopy Discharge Instructions Additional Instructions: [facility] andrea. She also needs follow-up appointment at [address] Day in clinic. You were prescribed a narcotic pain medication. In addition you may supplement with Tylenol and/or ibuprofen. Be sure to not exceed greater than 4 g of Tylenol in a 24 hour period. While on narcotic pain medicine please take stool softeners. A prescription of stool softeners has been sent to the pharmacy. Stop if having greater than 2 stools per day. Activity Level: No strenuous activity Activity Detail: No strenuous activity or lifting more than 15-20 lbs for 4-6 weeks. No swimming for 2 weeks. Continue to stay active with walking. Discharge Diet: Regular Follow Up Appointments: [facility] [Provider Group] - 06/14/25 10:00 am Referral Note: [facility], [place] for staple removal, with a nurse. Alyssa Day MD [Staff Physician, General Surgery] - 06/20/25 2:45 pm Referral Note: [facility], [place] for hospital follow-up. Genie Cruz PA-C [Primary Care Provider, Family Practice] Forms: [facility] Bel[facility], [facility] Inst[facility]
[2025-06-09] MEDS: PANTOPRAZOLE SODIUM 40 MG INJ IVP (11:56)
[2025-06-09] MEDS: ENOXAPARIN 40 MG/0.4 ML INJ SUBCUT (11:56)
--- NOTE | 2025-06-09 15:23 | P.IMPN_ITS ---
Assessment and Plan Assessment and plan (1) S/P small bowel resection: Problem comment: Small-bowel resection 06/04/[address] Day. Excellent recovery without complications. Discharge to home on 06/09/2025 with outpatient follow-up. Due to perforation of bowel from wire continue Augmentin for 4 more days Status: Acute (2) ALLISON (obstructive sleep apnea): Problem comment: On CPAP. Status: Acute (3) Chronic diarrhea: Problem comment: History of primarily diarrhea with some episodes of constipation over the past few decades. No formal diagnosis of inflammatory bowel disease or colitis. Patient believes this is dietary related. Now as small-bowel obstruction is resolving she is having diarrhea. This is not unusual. Return to normal home management of diet and bowel function Status: Acute (4) Hypertension: Problem comment: Patient has had elevated blood pressures in the hospital and also has had elevated blood pressures intermittently prior to this hospitalization. With comorbidities would benefit from aggressive blood pressure control. During hospital stay blood pressure improved though still hypertensive at discharge. At outpatient follow-up consider initiating blood pressure medications such as REYNA-inhibitor given comorbidity of diabetes Status: Acute (5) Acute hypokalemia: Problem comment: Likely due to poor oral intake. Replaced and corrected. Status: Acute Plan Probable discharge to home today with outpatient follow-up. Outpatient follow- up with surgery as well as eventually with primary care to reassess management of diabetes and blood pressure. Total Time Spent Total Time Spent: Total time spent today is 40 minutes in evaluation and management and discussing with other providers, patient and ongoing plan of care Subjective Date Seen: 06/09/25 Interval history: Admission H&P: Maty Martini is a 84 year old female with past medical history of obesity, HLD, type 2 diabetes and sinus bradycardia and ALLISON on CPAP who presents to the ED with severe abdominal pain and imaging showed 2 short segments of small intestine, inflamed and connected by foreign body that is radiopaque. General surgery team was consulted and took patient to the OR for concern of a perforation of the small bowel. Currently is S/p Exploratory laparotomy & removal of foreign body with Small bowel resection. Hospitalist team is consulted to help with management of chronic medical conditions. Reviewing her primary care physician office visit in January 2025, patient's A1c was 6.0 at that timer. She reports no recent edema and has discontinued the use of torsemide. She has been tolerating Mounjaro well and administers it consistently on the same day each week. She does not monitor her blood glucose levels at home. She has discontinued glipizide since starting Mounjaro. She takes omeprazole daily.. Patient has longstanding concerns about bowel function, colitis, diarrhea, constipation and diet. She reports history of colitis with an episode of bloody diarrhea about 13 years ago. In January [address] Naranjo with the following concerns: The patient is a 70-year-old female with a history of chronic diarrhea. Symptoms have been present for over 20 years. At least once a week, she will have cramps and diarrhea with 4 to 5 loose stools per day. No blood in the stool. Symptoms are sometimes triggered by eating oranges, lettuce, salads, raw vegetables, grapefruit, and corn. Other times, she will have diarrhea when she is under stress. No nighttime diarrhea. No blood in the stool. She had a colonoscopy 1-1/2 years ago. Biopsies were taken for microscopic colitis and there were negative. No family history of celiac disease, ulcerative colitis, or Crohn's disease. She has a son and daughter also with problems with diarrhea. Weight has been stable. No joint pains. No skin rashes. She has had problems with rectal prolapse and may have this repaired surgically in the future. April 2021 she was hospitalized at [place] [id number] with bloody diarrhea that was thought to be due to an infectious colitis and resolved relatively quickly. Since then she has continued to have episodes of diarrhea and occasional episodes of constipation as well. No further bleeding. She has been managing her symptoms with avoidance of high fiber foods and use of MiraLax as needed for constipation. July of 2022 she had a colonoscopy showing a 5 mm adenomatous polyp, internal hemorrhoids and sigmoid diverticulosis. 06/04/2025: She was taken to the OR by Dr. Day where she was found to have small-bowel perforation due to a small wire. I discussed this with the patient and her and this is likely due to the wire brush that they use to clean the grill. She has small-bowel resection for that. 06/05/2025: She reports she still having a fair bit of abdominal pain with movement. She has an NG tube in place. No fever. No dyspnea. 06/06/2025: Patient reports feeling better today. Pain is improved. She has been up walking. He has not yet passed gas but she is urinating. Did feel dehydrated earlier but is receive some additional fluid and is urinating better and less dehydrated. No respiratory problems. No other concerns. 06/07/2025: Patient reports continued to improve. She has been passing gas. NG was taken out this morning. She is tolerating clear liquids. Pain is much better. She has been ambulating well. No new concerns. 06/08/2025: Patient reports that she has developed diarrhea. Multiple episodes of watery green diarrhea. No fever or or new abdominal pain. If anything her abdominal pain is better. She has been up walking in the [place]. Tolerating clear liquids very well. 06/09/2025: Patient reports feeling better. Her diarrhea is better. Abdominal pain is better. She is eating well. She is anxious to go home. Exam Narrative: Exam Narrative: She is alert in no distress. Mood and affect are bright. Abdomen: Bowel sounds active. Abdomen is soft without tenderness. Incisions are well healing without erythema or drainage. Const: Vital Signs, click to edit/add: Vital Signs - 24 hr 06/08/25 20:18 06/08/25 23:00 06/08/25 23:00 Temperature 97.4 F L Pulse Rate [Pulse Oximeter] 72 68 Respiratory Rate 16 14 Blood Pressure [Le ft Arm] 157/81 H Blood Pressure [Ri ght Arm] Pulse Oximetry 95 92 Oxygen Delivery Me thod Room Air Room Air 06/09/25 00:04 06/09/25 03:42 06/09/25 07:00 Temperature 97.6 F 97.6 F Pulse Rate [Pulse Oximeter] 68 61 61 Respiratory Rate 14 16 16 Blood Pressure [Le ft Arm] 152/97 H 158/90 H Blood Pressure [Ri ght Arm] Pulse Oximetry 66 L 94 Oxygen Delivery Me thod Room Air 06/09/25 07:00 06/09/25 11:00 Temperature 98.2 F Pulse Rate [Pulse Oximeter] 64 62 Respiratory Rate 16 18 Blood Pressure [Le ft Arm] Blood Pressure [Ri ght Arm] 163/92 H 154/99 H Pulse Oximetry 94 94 Oxygen Delivery Me thod Room Air Room Air Documenting provider has reviewed patient's vital signs: yes Labs Labs: Laboratory Results - last 24 hr 06/09/25 06:35 WBC 9.48 RBC 4.08 Hgb 12.6 Hct 38.1 MCV 93 MCH 31 MCHC 33 RDW Coeff of Octavia 13.4 Plt Count 292 Neut % (Auto) 57.1 Lymph % (Auto) 30.0 [place] % (Auto) 10.2 Eos % (Auto) 2.3 Baso % (Auto) 0.2 Neut # (Auto) 5.41 Lymph # (Auto) 2.84 [place] # (Auto) 1.00 H Eos # (Auto) 0.22 Baso # (Auto) 0.02 Abs Immat Gran (auto) 0.02 Imm/Tot Granulo (auto) 0.2 Sodium 138 Potassium 3.8 Chloride 105 Carbon Dioxide 26 Anion Gap 7 BUN 7 Creatinine 0.7 Estimated Creat Clear 61.81 Estimated GFR 86 Glucose 126 H Calcium 9.4
--- NOTE | 2025-06-09 16:17 | PC.NURSE ---
Nursing Care Hours: [id number] Pt this shift calm and cooperative, alert and oriented. Only c/o pain is to bilat arthritis knee pain. Treated per eMAR. VSS. Tolerating regular soft diet. IV removed for discharge. Instructions went over with pt and spouse. All questions and concerns addressed. Forms signed. Wheeled out to vehicle in stable condition.
== END 2025-06-09 13:00 | disposition home or self-care (01) | DRG 330 ==
LOC: ED 18:19 → SS 18:35 → MEDSURG 22:00
PROVIDERS: Family Medicine; Admitting Provider Surgery; Emergency Provider Family Medicine; PCP Physician Assistant; Visit Provider Surgery
PROC: 0DT80ZZ Resection of Small Intestine, Open Approach (ICD-10-PCS; principal; 2025-06-04 18:00)
PROC: 0DT80ZZ Resection of Small Intestine, Open Approach (ICD-10-PCS; CPT 49320; 2025-06-04 18:00)
DX: K63.1 Perforation of intestine (nontraumatic) (principal); Z68.41 Body mass index [BMI] 40.0-44.9, adult; T18.3XXA Foreign body in small intestine, initial encounter; E66.01 Morbid (severe) obesity due to excess calories; E87.6 Hypokalemia; E11.9 Type 2 diabetes mellitus without complications; K52.9 Noninfective gastroenteritis and colitis, unspecified; K21.9 Gastro-esophageal reflux disease without esophagitis; I10 Essential (primary) hypertension; Z53.31 Laparoscopic surgical procedure converted to open procedure; G47.33 Obstructive sleep apnea (adult) (pediatric); Z79.85 Long-term (current) use of injectable non-insulin antidiabetic drugs; E78.5 Hyperlipidemia, unspecified
CPT/HCPCS: 00840; 36415; 71045; 74177; 76705; 80048; 80076; 81001; 82962; 83690; 85025; 85379; 86140; 88300; 88307; 93005; 99100; 99140; 99284; 99285; A4314; A9270; J0330; J0665; J1100; J1171; J1650; J2371; J2405; J2470; J2543; J2704; J3010; J3490; J7030; J7050; J7120; Q9967